=== PATIENT | male | born 1945 | race Caucasian/White ===

== ENCOUNTER 2017-02-15 14:36 | Inpatient (IN) | payer OTHER ==
--- NOTE | ~2017-02-15 | HP ---
History And Physical [address] [place]. [address] NAME: SUZE REID : [id number] STATUS : ADM Michelle PAT#: [id number] AGE: 71 ADM/REG DATE : 02/15/17 MR#: [id number] REPORT SERV DATE: 02/15/17 DICTATED BY: FOX MARTINEZ DATE: 02/15/17 REPORT STATUS : Draft TRANSCRIBED BY: MODAlbert DATE: 02/15/17 DATE OF ADMISSION: 02/15/2017 CHIEF COMPLAINT: Shortness of breath. HISTORY OF PRESENT ILLNESS: The patient is a 71 years old male with history of COPD, presented to [facility] ER with complaint of shortness of breath, dyspnea that had started yesterday. The patient reports had been coughing also had been feeling weak. The patient reports he has not had any fever. He had noted some pain on both sides. The patient denies complaint of pain with urination, but reports that his urine is dark. The patient reports he recently completed treatment of Keflex for his left leg infection. The patient reports this was prescribed by his primary care, Deloris Torres NP. ALLERGIES: THE PATIENT IS ALLERGIC TO IODINATED CONTRAST, ALSO AMOXICILLIN, BUT THE PATIENT DOES NOT KNOW THE RESPONSE TO AMOXICILLIN. CODE STATUS: The patient is a full code. MEDICATIONS: Home medications to include Lipitor 20 mg at bedtime, Plavix 75 mg daily, Claritin 10 mg daily, Cozaar 50 mg daily, metoprolol 25 mg twice a day, naproxen 550 mg p.o. p.r.n. for pain, potassium 20 mEq daily, Flomax 0.4 mg p.o. daily, Ultram 50 mg two tabs three times a day p.r.n. for pain. PAST MEDICAL HISTORY: Includes: 1. Positive for coronary artery disease, status post bypass. 2. COPD. 3. Gait impairment, uses walker. 4. Hypertension. 5. Hyperlipidemia. 6. Peripheral arterial disease. 7. History of left knee septic arthritis, status post left knee arthroscopic surgery. 8. Anemia. PAST SURGICAL HISTORY: 1. Left knee arthroscopic surgery on 06/29/2016. 2. Cardiac catheterization. 3. CABG. 4. Lower extremity stent. SOCIAL HISTORY: The patient lives at home with . His [employer] is [employer]. He is a former smoker, smoked since age 15, but quit four years ago. The patient reports he is a social drinker, normally just drinks wine. 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 FAMILY HISTORY: Hypertension and heart disease mainly on his mother's side. History And Physical [address] [address] NAME: SUZE REID : [id number] STATUS : ADM Michelle PAT#: [id number] AGE: 71 ADM/REG DATE : 02/15/17 MR#: [id number] REPORT SERV DATE: 02/15/17 DICTATED BY: FOX MARTINEZ DATE: 02/15/17 REPORT STATUS : Draft TRANSCRIBED BY: LAM DATE: 02/15/17 REVIEW OF SYSTEMS: The patient reports he has no problem with eating or swallowing. He reports he has been coughing the past few days, but has been having shortness of breath the past few days, but worsened yesterday. The patient reports he has history of COPD, but does not use oxygen at home and he does not use breathing treatment. The patient reports no chest pain. Reports no nausea or vomiting. Last bowel movement was yesterday. The patient reports that he usually walks with a walker, but had noted weakness since yesterday. The patient reports he recently completed treatment with Keflex for his left leg infection that he had noted an improvement even on his walking. The patient reports that he had experienced some pain of his left side, but he denies any complaint of pain with urination. LABORATORY DATA: WBC of 14.5, hemoglobin 10.5, hematocrit 32.8, platelet of 311. Sodium 134, potassium 3.4, chloride 95, CO2 of 27, BUN 25, creatinine of 1.10, glucose of 150, BNP of 332.9, magnesium 1.8. Troponin is 0.0. ABG; pH of 7.47, pCO2 of 38, PO2 of 60, base excess of 3.1, HCO3 of 27.2, and O2 saturation of 90. Pending urinalysis. Chest x-ray, right basilar atelectasis. PHYSICAL EXAMINATION: VITAL SIGNS: The patient with temp of 97.6, BP of 122/78, respiratory rate 22, heart rate was 75. GENERAL: The patient is an elderly male, in no acute distress noted. HEENT: Normocephalic, atraumatic. Bilaterally nonicteric. Sclera are clear. NECK: Supple with no pain. LUNGS: The patient with inspiratory wheezing and diminished breath sounds. Cough with deep breath and the patient breathless with prolonged talking. CV: Regular rate and rhythm. Normal S1, S2. No murmurs noted. ABDOMEN: Soft, nontender. No guarding. Bowel sounds x4 quadrants. EXTREMITIES: No edema in bilateral lower extremities. Noted generalized arthritic changes. Noted scar in the left knee consistent with surgical history. Bilateral upper extremity strength good. Bilateral lower extremity strength equally 4/5, but able to have good range of motion in all extremities. ASSESSMENT: 1. Shortness of breath likely secondary to chronic obstructive pulmonary disease exacerbation. 2. Chronic obstructive pulmonary disease with acute exacerbation. 3. Leukocytosis. 4. Right basilar atelectasis. 5. Hyponatremia. 6. Hyperkalemia. 7. Hypomagnesemia. 8. Hypertension. 9. Coronary disease, status post CABG. 10.Gait impairment. 11.Anemia secondary to chronic disease. 12.Hyperlipidemia. 13.Peripheral arterial disease status post stent. History And Physical [address] [address] NAME: SUZE REID : [id number] STATUS : ADM Michelle PAT#: [id number] AGE: 71 ADM/REG DATE : 02/15/17 MR#: [id number] REPORT SERV DATE: 02/15/17 DICTATED BY: FOX MARTINEZ DATE: 02/15/17 REPORT STATUS : Draft TRANSCRIBED BY: LAM DATE: 02/15/17 PLAN: 1. We will admit the patient on observation. Continue O2 support via nasal cannula, currently at 3 L with sat O2 at 94%. We will monitor sat O2 q.4 hours. Increase O2 if needed to keep the patient sat O2 at 92%. The patient received 125 mg IV Solu-Medrol. We will plan to follow up with 60 mg IV q.8 hours. Encouraged the patient to use incentive spirometry. We will follow up chest x-ray in a.m. to follow up atelectasis. 2. The patient at risk for further hypoxia. 3. Address code status with family member and the patient. The patient wishes full code. We will ensure POLST form completed. 4. We will resume home medication. 5. We will obtain repeat CBC, BMP, and magnesium level in a.m. 6. Place the patient on electrolyte protocol given admission sodium, potassium, and magnesium is low. The patient is at risk for cardiac arrhythmia. 7. We will have p.r.n. Zofran available for any nausea vomiting. Have Ativan IV p.r.n. for anxiety or agitation. Have morphine IV p.r.n. for complaint of pain. 8. We will follow up on urine culture. We will hold off antibiotic at this time given the patient just recently completed Keflex for 10 days. If the patient's urinalysis is positive, we will initiate Rocephin IV for now and follow up on lab study. 9. We will plan to refer the patient to PT once the patient's respiratory status is stable. The patient currently will be placed on a DVT prophylaxis with NATASHA hose. The patient is at risk for DVT. 10.We will monitor for signs and symptoms of coronary disease. We will continue home regimen with Plavix, beta-sara, and Cozaar. We will monitor blood pressures throughout patient admission. Blood pressure is stable despite not having medications this morning. The patient is at risk for acute coronary syndrome, CVA. 11.We will continue tramadol p.r.n. for pain at this time, but we will have morphine IV p.r.n. 12.We will place the patient on bronchodilator. He will need a breathing treatment q.4 hours. DICTATED BY: Lucía Cheney NP CLP/MODL Fox Martinez M.D. / [id number] CC: Elina Noel NP
--- NOTE | ~2017-02-15 | OP ---
Record Of Operation [facility] [address] [place]. [address] NAME: SUZE REID : [id number] STATUS : ADM Michelle PAT#: [id number] AGE: 71 ADM/REG DATE : 02/15/17 MR#: [id number] REPORT SERV DATE: 02/16/17 DICTATED BY: JONATHAN HALEY DATE: 02/16/17 REPORT STATUS : Draft TRANSCRIBED BY: MODL DATE: 02/16/17 DATE OF PROCEDURE: 02/16/2017 PROCEDURE: Right chest tube. DIAGNOSIS: Right moderate size pneumothorax. DESCRIPTION: Informed consent obtained from patient, both written and verbal. All questions answered. The patient was in CDU, bed 23, at the time of the procedure. He was on nasal cannula oxygen and vitals were being monitored. Dejuan Quinones PA-C, performed all washburn elements of the procedure. Chlorhexidine was scrubbed on the right anterior portion of the chest to clean off the area. A drape was placed and sterile technique was used to maintain throughout the entire procedure. 1% lidocaine was injected over the second intercostal space down to the level of the parietal pleura to reduce pain. A small scalpel estefani was done to open up an area on the skin for the introducer needle to be placed. Then, the main pneumothorax needle was inserted in the right anterior chest second intercostal space until the right pleural space was accessed. The catheter was then inserted and the needle was removed. The catheter was hooked up to a flutter valve and was sutured and dressing in place. Chest x-ray is pending. No complications or bleeding loss. CEP/MODL Jonathan Haley DO / [id number] CC: Lenin Holt M.D.
--- NOTE | ~2017-02-15 | CN ---
Consultation Report [facility] [address] [place]. [address] NAME: SUZE REID : [id number] STATUS : ADM Michelle PAT#: [id number] AGE: 71 ADM/REG DATE : 02/15/17 MR#: [id number] REPORT SERV DATE: 02/16/17 DICTATED BY: JONATHAN HALEY DATE: 02/16/17 REPORT STATUS : Draft TRANSCRIBED BY: MODL DATE: 02/16/17 CONSULTATION DATE OF CONSULTATION: HISTORY OF PRESENT ILLNESS: This is a 71-year-old white male with past medical history of COPD/emphysema, admitted to the hospital for shortness of breath over the past couple of days. We were consulted because of a newly discovered right-sided pneumothorax seen on chest x-ray right out this morning. The patient is normally not on any home oxygen, but he is currently on 5 L/minute here saturating 92%. The patient when he came into the hospital, he was having some slight cough with clear phlegm, but nothing out of the ordinary for him, not having any fevers, chills. Did have a little bit of chest pain last night, but not hurting him currently. He was able to speak in full sentences without any accessory muscle use. The patient does have COPD, but not followed by barrel polisher inside and he is not on any current inhalers or oxygen at home. Last hospitalization was back in our facility was back in July, after he had sepsis of his left knee, which was related to MRSA. REVIEW OF SYSTEMS: Not having fevers, chills, or sweats. No nausea, vomiting, abdominal pain, syncope or seizure. No significant leg swelling or rash. ALLERGIES: IODINE, AMOXICILLIN. HOME MEDICATIONS: Reviewed. PAST MEDICAL HISTORY: Coronary artery disease, CABG, COPD, hypertension, dyslipidemia, peripheral vascular disease, history of left knee septic arthritis, cardiac catheterization, lower extremity stent. SOCIAL HISTORY: Former smoker. 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 FAMILY HISTORY: Hypertension and heart disease. PHYSICAL EXAMINATION: VITAL SIGNS: Per nursing flow sheet. GENERAL: No acute distress. ENT: Normocephalic, atraumatic. NECK: Trachea midline. No palpable lymph nodes or masses. HEART: Regular rate and rhythm. No murmurs. LUNGS: Diminished bilaterally, but no wheezes. No accessory muscle use. GI: Soft, nontender, nondistended. EXTREMITIES: No edema, cyanosis, or clubbing. Consultation Report [address] [place]. [address] NAME: SUZE REID : [id number] STATUS : ADM Michelle PAT#: [id number] AGE: 71 ADM/REG DATE : 02/15/17 MR#: [id number] REPORT SERV DATE: 02/16/17 DICTATED BY: JONATHAN HALEY DATE: 02/16/17 REPORT STATUS : Draft TRANSCRIBED BY: MODL DATE: 02/16/17 LABORATORY DATA: Labs and radiology studies reviewed. ASSESSMENT AND PLAN: 1. Right moderate-sized pneumothorax. 2. Chronic obstructive pulmonary disease. 3. Right basilar atelectasis. The patient is on oxygen to keep sats above 92%. The patient will need a right-sided chest tube. Procedure was explained to the patient with risks and side effects discussed. All questions were answered. Procedure to be done inside the room and will be dictated under separate report. The patient is currently on IV steroids, but likely will be able to stop those soon. He is also on DuoNeb aerosols. CEP/MODL Jonathan Haely DO / [id number] CC: Lenin Holt M.D.
--- NOTE | ~2017-02-15 | CN ---
Consultation Report [facility] [address] [place]. [address] NAME: NIRAJ REID : [id number] STATUS : DIS IN PAT#: [id number] AGE: 71 ADM/REG DATE : 02/15/17 MR#: [id number] REPORT SERV DATE: 02/18/17 DICTATED BY: DUKE CAMARGO DATE: 02/18/17 REPORT STATUS : Draft TRANSCRIBED BY: MODL DATE: 02/18/17 CARDIOVASCULAR CONSULTATION DATE OF CONSULTATION: 02/18/2017 HISTORY OF PRESENT ILLNESS: Mr. Niraj Reid is a 71-year-old gentleman with past medical history significant for coronary artery disease. He is status post bypass by Dr. Rosario in 2006. His most recent cardiac catheterization was in 2015, which revealed chronically occluded SVG to the right coronary artery. The patient has been treated medically since that time. He was admitted here on 02/15/2017 secondary to a spontaneous right pneumothorax. I was asked to see the patient earlier today, as he has now developed atrial fibrillation with rapid ventricular response. REVIEW OF SYSTEMS: The patient denies any complaints. He denies any chest pain, shortness of breath, or tachypalpitations. He denies any gastrointestinal, genitourinary, or neurologic complaints. PAST MEDICAL HISTORY: As noted above, significant for coronary artery disease status post remote CABG. The patient also with history of peripheral vascular disease. He has had an endovascular repair of an abdominal aortic aneurysm in 2009. He is status post left carotid endarterectomy in 2011. He has also had iliac stenting. The patient also with a history of hypertension and hyperlipidemia. SOCIAL HISTORY: The patient quit smoking 3 years ago. FAMILY HISTORY: Positive for coronary artery disease. PHYSICAL EXAMINATION: VITAL SIGNS: Blood pressure 110/70, pulse 106 to 130, respiratory rate 18. The patient is afebrile. GENERAL: This is a well-developed, well-nourished 71-year-old gentleman, alert and oriented x3, in no acute distress. NECK: No jugular venous distention or hepatojugular reflux. Left carotid bruits appreciated. CARDIOVASCULAR: Increased rate with irregular rhythm. LUNGS: Clear to auscultation, however excursion is fair to poor. EXTREMITIES: Reveals no clubbing, cyanosis, or edema. DIAGNOSTIC DATA: EKG shows atrial fibrillation with rapid ventricular response at a rate of 123 beats per minute. There are minimal nonspecific ST-T wave abnormalities. There is no evidence of acute injury. ASSESSMENT: 1. Atrial fibrillation with rapid ventricular response, likely exacerbated by recent Consultation Report [id number] [place]. [address] NAME: NIRAJ REID : [id number] STATUS : DIS IN PAT#: [id number] AGE: 71 ADM/REG DATE : 02/15/17 MR#: [id number] REPORT SERV DATE: 02/18/17 DICTATED BY: DUKE CAMARGO DATE: 02/18/17 REPORT STATUS : Draft TRANSCRIBED BY: LAM DATE: 02/18/17 pneumothorax. 2. Coronary artery disease. 3. Peripheral vascular disease. 4. Hypertension. 5. Hyperlipidemia. 6. Chronic obstructive pulmonary disease. PLAN: 1. We will change metoprolol to sotalol. 2. We will discontinue Plavix and start Eliquis. 3. We will give some IV digoxin to slow his rate. I appreciate your consultation on this complex patient. I will follow him closely with you. /LAM Duke Camargo M.D., [facility] / [id number] CC: Lenin Holt M.D.
--- NOTE | ~2017-02-15 | DS ---
Discharge Summary [facility] [address] [place]. [address] NAME: SUZE REID : [id number] STATUS : DIS IN PAT#: [id number] AGE: 71 ADM/REG DATE : 02/15/17 MR#: [id number] REPORT SERV DATE: 02/25/17 DICTATED BY: FOX MARTINEZ DATE: 02/24/17 REPORT STATUS : Draft TRANSCRIBED BY: LAM DATE: 02/24/17 Data Collection from hospitalization DISCHARGE DIAGNOSES: 1. New-onset atrial fibrillation with rapid ventricular response. 2. Chronic obstructive pulmonary disease exacerbation with pneumothorax. 3. Electrolyte imbalance. 4. Gait impairment. 5. Coronary artery disease, status post coronary artery bypass grafting. 6. History of old cerebrovascular accident. 7. Hypertension. 8. Gait impairment. 9. Hyperlipidemia. 10.Peripheral arterial disease. 11.Anemia. 12.Former smoker. CONSULTATIONS: 1. Duke Moncada M.D., FACC. 2. Jonathan Haley DO. PROCEDURES PERFORMED: Right chest tube placement on 02/16/2017. DISPOSITION: The patient checked out against medical advice. HOSPITAL COURSE: This is a 71-year-old man who has a history of COPD, who presented to the [facility] Emergency Room with complaints of shortness of breath and dyspnea that started on the day prior to admission. The patient reports that he had been coughing and he felt weak. He said he has not had any fever. He had noticed some pain on both sides. He denied any complaints of pain with urination, but did report that his urine was dark. He said he recently completed treatment of Keflex for his left leg infection. He was admitted to the hospital at this time for further evaluation and treatment. Upon admission, O2 support via nasal cannula was continued. He received IV Solu-Medrol. We encouraged him to use incentive spirometry. The patient wanted to be a full code. Home medications would be resumed. The patient was placed on electrolyte protocol. Zofran would be given as needed for nausea and vomiting. IV Ativan would be given as needed for anxiety or agitation. IV morphine would be given as needed for complaints of pain. DVT prophylaxis with NATASHA hoses would be placed. Home regimen of Plavix, beta-sara, and Cozaar were continued. Tramadol was continued for pain as needed. The patient was placed on bronchodilator. The following day, he was seen by Dr. Jonathan Haley regarding newly discovered right-sided pneumothorax seen on chest x-ray. He is not normally on home oxygen, but was currently on 5 liters/minute. He was saturating at 92%. He was able to speak in full sentences without any accessory muscle use. The patient has a moderate-sized right pneumothorax and right basilar atelectasis. We would keep the patient on oxygen to keep saturations above 92%. It was felt that he would need a right-sided chest tube. This procedure was discussed with the patient. The patient was currently on IV steroids, but these would likely be able to be discontinued soon. He was also on DuoNeb aerosols. The Discharge Summary [address] [address] NAME: SUZE REID : [id number] STATUS : DIS IN PAT#: [id number] AGE: 71 ADM/REG DATE : 02/15/17 MR#: [id number] REPORT SERV DATE: 02/25/17 DICTATED BY: FOX MARTINEZ DATE: 02/24/17 REPORT STATUS : Draft TRANSCRIBED BY: LAM DATE: 02/24/17 patient underwent right-sided chest tube placement by Dr. Jonathan Haley. Shortness of breath and dyspnea improved with chest tube placement. On 02/17/2017, he had no new complaints. Chest x-ray showed no visible pneumothorax. There was a small amount of right pleuritic fluid. The chest tube was going to be clamped. Later that day, the chest tube was removed. He said he was feeling a little better. On 02/18/2017, the patient developed a new onset of atrial fibrillation. He was seen by Dr. Duke Moncada. He does have a history of coronary artery disease. His most recent cardiac catheterization was in 2016, which revealed chronically occluded saphenous vein graft to the right coronary artery. He had been treated medically since that time. EKG revealed atrial fibrillation with rapid ventricular response at a rate of 123 beats per minute. There were minimal nonspecific ST-T wave abnormalities. There was no evidence of acute injury. Metoprolol was changed to sotalol. Plavix was discontinued and he was started on Eliquis. He was given some IV digoxin to slow his rate. He had no pain or dizziness. He has no known prior history of atrial fibrillation. The patient elected to leave the hospital against medical advice. Information collected by: Aura Ricardo I submit the above information as my discharge summary. JULIO/LAM Fox Martinez M.D. / [id number] CC: Elina Noel M.D., [facility]
[2017-02-15 11:40] LABS: BASOPHILS 0.1 %; BASOPHILS ABSOLUTE 0.02 10/3/uL (0.0-0.16); EOSINOPHILS 0.6 %; EOSINOPHILS ABSOLUTE 0.09 10/3/uL (0.0-0.53); HEMATOCRIT 32.8 % (40.0-51.0); HEMOGLOBIN 10.5 g/dL (13.6-17.8); IMMATURE GRANULOCYTES 0.2 %; IMMATURE GRANULOCYTES ABSOLUTE 0.03 10/3/uL (0.0-0.11); LYMPHOCYTES 7.4 %; LYMPHOCYTES ABSOLUTE 1.07 10/3/uL (0.67-4.30); MEAN CORPUSCULAR HEMOGLOB 26.6 pg (26.0-34.0); MEAN PLATELET VOLUME 8.5 fL (9.2-13.0); MONOCYTES 4.8 %; NEUTROPHILS 86.9 %; NEUTROPHILS ABSOLUTE 12.61 10/3/uL (2.02-8.40); RBC DISTRIBUTION WIDTH 15.5 % (12.0-16.0); RED CELL COUNT 3.94 10/6/uL (4.7-6.1)
[2017-02-15 11:41] LABS: ER CBC TAT 0 Hrs 05 Mins; MANUAL DIFF NO %; MEAN CORPUSCULAR VOLUME 83.2 fL (80-100); PLATELET COUNT 311 10/3/uL (150-400); WHITE BLOOD CELLS 14.5 10/3/uL (4.5-10.5)
[2017-02-15 11:48] LABS: INTERNATIONAL NORMAL RATI 1.2 UNITS (-); PARTIAL THROMBO TIME 26.9 SEC (22.5-37.2); PROTIME (NOT ORD) 15.2 SEC (12.0-14.5)
[2017-02-15 11:59] LABS: BUN (BLOOD UREA NITROGEN) 25 MG/DL (6-23); CALCIUM, SERUM 8.9 MG/DL (8.5-10.4); CHEST PAIN PROFILE TAT 0 Hrs 23 Mins; CHLORIDE, SERUM 95 MMOL/L (96-112); CO2 (CARBON DIOXIDE) 27 MMOL/L (24-34); GFR AFRICAN AMERICAN 77 ML/MIN (>=60); GFR NON AFRICAN AMERICAN 67 ML/MIN (>=60); GLUCOSE, SERUM 150 MG/DL (60-99); POTASSIUM, SERUM 3.4 MMOL/L (3.5-5.3); SODIUM, SERUM 134 MMOL/L (135-148); TROPONIN I 0.04 NG/ML (<0.05)
[~2017-02-15 14:36] MED LIST: *UNABLE1; ALEVE220 MG PO; ASAB PO; ASAEC PO; CINNAMONPO PO; CIP5 PO; COZ50 PO; DSS PO; DULERA 100 MCG/13 GM INH; ENDOCET1 TA2 PO; FLOMAX4 PO; HCTZ PO; HYDROCHLOROT25 MG PO; IMDUR30 PO; KDUR20 PO; KLOR-CON M2020 MEQ PO; LIDOCAINE TOP; LIPITOR20 PO; LOP25 PO; MAXIMUM D3 PO; MEDROLPAK4 PO; NAP500 PO; PEP20 PO; PERCOCET1 TA2 PO; PLAVIX PO; POTASSIUM RX PO; PRIN10 PO; ZYVOXPO PO; [UNRECOGNIZED DRUG - REMARK] PO
[2017-02-15 14:38] LABS: ALLENS TEST Pos; BE (BASE EXCESS) 3.4 MEQ/L (0 +/- 2.5); CARBOXYHEMOGLOBIN 1.5 % (0-3); HCO3 (ACTUAL BICARBONATE) 27.2 MEQ/L (23-27); HEMOBLOGIN CONTENT 11.3 G/DL (14-18); INSTRUMENT SERIAL # 8087; METHEMOGLOBIN 0.2 % (0-3); O2 CONTENT 14.1 VOL% (18-24); OPERATOR ID 32214; PCO2 (CO2 TENSION) 38 MMHG (35-45); PO2 (O2 TENSION) 60 MMHG (79-93); SAMPLE Arterial; pH 7.47 (7.37-7.43)
[2017-02-15] MEDS ORDERED: KDUR20 PO (15:33)
[2017-02-15] MEDS ORDERED: FLOMAX4 PO (15:33)
[2017-02-15] MEDS ORDERED: LOP25 PO (15:34)
[2017-02-15] MEDS ORDERED: HYDROCHLOROT25 MG PO (15:34)
[2017-02-15] MEDS ORDERED: COZ50 PO (15:36)
[2017-02-15] MEDS ORDERED: CLARIT10 PO (15:36)
[2017-02-15] MEDS ORDERED: ULTRAM50 PO (15:36)
[2017-02-15] MEDS ORDERED: ANADS PO (15:37)
[2017-02-15] MEDS ORDERED: K500 PO (15:45)
[2017-02-16 03:24] LABS: ASCORBIC ACID (UR NOT ORDER) NEG (NEG); BILIRUBIN, URINE NEGATIVE (NEG); KETONE, URINE NEGATIVE (NEG); LEUKOCYTE ESTERASE(NOT OR NEG (NEG); WBC (NOT ORDERED) (RFLEX) 4 (0-5)
[2017-02-16 05:27] LABS: BASOPHILS 0 %; EOSINOPHILS 0.1 %; EOSINOPHILS ABSOLUTE 0.01 10/3/uL (0.0-0.53); HEMATOCRIT 34.4 % (40.0-51.0); HEMOGLOBIN 10.8 g/dL (13.6-17.8); LYMPHOCYTES 9.7 %; LYMPHOCYTES ABSOLUTE 0.82 10/3/uL (0.67-4.30); MEAN CORPUS HGB CONC 31.4 g/dL (32.0-36.0); MEAN CORPUSCULAR HEMOGLOB 26.4 pg (26.0-34.0); MEAN CORPUSCULAR VOLUME 84.1 fL (80-100); MEAN PLATELET VOLUME 8.6 fL (9.2-13.0); MONOCYTES 1.9 %; MONOCYTES ABSOLUTE 0.16 10/3/uL (0.21-1.20); NEUTROPHILS 88.3 %; NEUTROPHILS ABSOLUTE 7.46 10/3/uL (2.02-8.40); PLATELET COUNT 302 10/3/uL (150-400); RBC DISTRIBUTION WIDTH 15.6 % (12.0-16.0); RED CELL COUNT 4.09 10/6/uL (4.7-6.1)
[2017-02-16 05:36] LABS: MANUAL DIFF NO %; WHITE BLOOD CELLS 8.5 10/3/uL (4.5-10.5)
[2017-02-16 05:45] LABS: CALCIUM, SERUM 9.4 MG/DL (8.5-10.4); CHLORIDE, SERUM 99 MMOL/L (96-112); CO2 (CARBON DIOXIDE) 28 MMOL/L (24-34); CREATININE 1.05 MG/DL (0.70-1.30); GFR AFRICAN AMERICAN 82 ML/MIN (>=60); GFR NON AFRICAN AMERICAN 71 ML/MIN (>=60); GLUCOSE, SERUM 137 MG/DL (60-99); POTASSIUM, SERUM 3.7 MMOL/L (3.5-5.3); SODIUM, SERUM 137 MMOL/L (135-148)
[2017-02-16 05:47] LABS: BUN (BLOOD UREA NITROGEN) 32 MG/DL (6-23)
[2017-02-18 05:29] LABS: BASOPHILS 0.4 %; BASOPHILS ABSOLUTE 0.04 10/3/uL (0.0-0.16); EOSINOPHILS 0.5 %; EOSINOPHILS ABSOLUTE 0.05 10/3/uL (0.0-0.53); HEMATOCRIT 30.9 % (40.0-51.0); HEMOGLOBIN 9.5 g/dL (13.6-17.8); IMMATURE GRANULOCYTES 0.2 %; IMMATURE GRANULOCYTES ABSOLUTE 0.02 10/3/uL (0.0-0.11); LYMPHOCYTES 9.2 %; LYMPHOCYTES ABSOLUTE 1.02 10/3/uL (0.67-4.30); MANUAL DIFF NO %; MEAN CORPUS HGB CONC 30.7 g/dL (32.0-36.0); MEAN CORPUSCULAR HEMOGLOB 26.2 pg (26.0-34.0); MEAN CORPUSCULAR VOLUME 85.4 fL (80-100); MEAN PLATELET VOLUME 8.6 fL (9.2-13.0); MONOCYTES 6.5 %; MONOCYTES ABSOLUTE 0.72 10/3/uL (0.21-1.20); NEUTROPHILS 83.2 %; NEUTROPHILS ABSOLUTE 9.25 10/3/uL (2.02-8.40); PLATELET COUNT 241 10/3/uL (150-400); RBC DISTRIBUTION WIDTH 15.6 % (12.0-16.0); RED CELL COUNT 3.62 10/6/uL (4.7-6.1); WHITE BLOOD CELLS 11.1 10/3/uL (4.5-10.5)
[2017-02-18 05:42] LABS: CHLORIDE, SERUM 100 MMOL/L (96-112); CO2 (CARBON DIOXIDE) 31 MMOL/L (24-34); GFR AFRICAN AMERICAN 87 ML/MIN (>=60); GFR NON AFRICAN AMERICAN 75 ML/MIN (>=60); POTASSIUM, SERUM 3.6 MMOL/L (3.5-5.3); SODIUM, SERUM 139 MMOL/L (135-148)
[2017-02-18 05:43] LABS: BUN (BLOOD UREA NITROGEN) 40 MG/DL (6-23); GLUCOSE, SERUM 102 MG/DL (60-99)
== END 2017-02-18 12:58 | disposition left against medical advice (07) | DRG 200 ==
LOC: ER 14:36 → CDU1 15:32 → CDU2 18:14
PROVIDERS: Emergency Medicine; Family Medicine
PROC: 0W9930Z Drainage of Right Pleural Cavity with Drainage Device, Percutaneous Approach (ICD-10-PCS; principal; 2017-02-16)
DX: J93.83 Other pneumothorax (principal); J44.1 Chronic obstructive pulmonary disease with (acute) exacerbation; E87.1 Hypo-osmolality and hyponatremia; E87.5 Hyperkalemia; E83.42 Hypomagnesemia; I25.810 Atherosclerosis of coronary artery bypass graft(s) without angina pectoris; I48.91 Unspecified atrial fibrillation; J98.11 Atelectasis; I10 Essential (primary) hypertension; R26.89 Other abnormalities of gait and mobility; D63.8 Anemia in other chronic diseases classified elsewhere; E78.5 Hyperlipidemia, unspecified; Z95.820 Peripheral vascular angioplasty status with implants and grafts; Z87.891 Personal history of nicotine dependence; Z79.02 Long term (current) use of antithrombotics/antiplatelets; Z79.891 Long term (current) use of opiate analgesic; Z86.14 Personal history of Methicillin resistant Staphylococcus aureus infection; I69.398 Other sequelae of cerebral infarction
CPT/HCPCS: 36600; 71010; 71020; 80048; 81001; 82805; 83735; 83880; 84484; 85025; 85610; 85730; 93005; 94640; 96374; 99285; A9270-GY; J2930

== ENCOUNTER 2017-02-24 16:58 | Inpatient (IN) | payer OTHER ==
--- NOTE | ~2017-02-24 | HP ---
History And Physical [place] [id number] [facility] [place]. [address] NAME: SUZE REID : [id number] STATUS : ADM IN [facility]#: [id number] AGE: 71 ADM/REG DATE : 02/24/17 MR#: [id number] REPORT SERV DATE: 02/25/17 DICTATED BY: FOX MARTINEZ DATE: 02/25/17 REPORT STATUS : Draft TRANSCRIBED BY: MODL DATE: 02/25/17 DATE OF ADMISSION: 02/24/2017 CHIEF COMPLAINT: Shortness of breath and cough. HISTORY OF PRESENT ILLNESS: The patient is a 71-year-old male, known to our service, who was recently admitted to [facility] on 02/15/2017, where he was treated for right pneumothorax, underwent chest tube, and his chest tube was removed Monday. The next day which was Monday of last week, the patient had gone home AMA. The patient's family member reports that the patient's breathing has progressively worsened. The patient reports that he had noted increase in shortness of breath and difficulty taking good deep breaths as well as cough and pain when coughing and breathing; reports that this had worsened progressively over the last 5 days since he left the [facility] on last Monday. The patient presented to [facility] ER yesterday for worsening complaint of shortness of breath, cough, and pain with breathing as well as the patient reports he was also very weak. The patient now reports he has been breathing much better since his chest tube was placed yesterday. He reports he is able to breathe deeper, still coughs when he takes deep breaths. He reports he had noticed some blood in his phlegm prior to returning back to the hospital but he reports this has not been an issue now. The patient reports his right chest discomfort is also much improved since the chest tube has been placed but still ongoing. He scales his pain in a range of 0 to 10 to be 1 to 4. ALLERGIES: THE PATIENT WITH ALLERGY TO IODINE CONTRAST AND AMOXICILLIN. THE PATIENT DOES NOT KNOW THE RESPONSE TO AMOXICILLIN. CODE STATUS: Full code. MEDICATIONS: Home medications to include 1. Lipitor 20 mg at bedtime. 2. Plavix 75 mg daily. 3. Hydrochlorothiazide 25 mg daily. 4. Claritin 10 mg daily. 5. Losartan 50 mg daily. 6. Lopressor 25 mg twice a day. 7. Potassium sustained release tablet 20 mEq daily. 8. Flomax 0.4 mg at bedtime. PAST MEDICAL HISTORY: Includes COPD, coronary artery disease status post CABG, hypertension, hyperlipidemia, peripheral arterial disease, chronic anemia, history of left knee MRSA septic arthritis, status post left knee arthroscopy, history of lower extremity stent placement, gait impairment, uses a walker, and left knee pain secondary to history of left knee arthroscopy. PAST SURGICAL HISTORY: History And Physical [address] [address] NAME: SUZE REID : [id number] STATUS : ADM IN PAT#: [id number] AGE: 71 ADM/REG DATE : 02/24/17 MR#: [id number] REPORT SERV DATE: 02/25/17 DICTATED BY: FOX MARTINEZ DATE: 02/25/17 REPORT STATUS : Draft TRANSCRIBED BY: LAM DATE: 02/25/17 1. Left knee arthroscopic surgery on 06/29/2016. 2. Cardiac catheterization. 3. Coronary artery bypass grafting. 4. Lower extremity stent. SOCIAL HISTORY: The patient is . His hoahaoism is Yazdanism. 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 He is a remote smoker, quit 4 years ago. He does drink socially, he drinks wine and he denies illicit drug use. FAMILY HISTORY: To include coronary artery disease, hypertension in the mother's side. REVIEW OF SYSTEMS: The patient denies any problem with his eyesight; however, he denies any problems swallowing. He has a history of hypertension. He reports right chest discomfort with cough but this had been better since chest tube has been placed. The patient reports shortness of breath had increased progressively after he left [facility] on Monday. The patient reports he left AMA secondary to his . The patient denies history of home O2 use. The patient denies history of ulcer or reflux. Denies any nausea or vomiting at this time. The patient denies any complaint of pain with urination. He reports he is having good urine output. The patient with history of left knee arthritis. Reports left knee pain since his surgery. He reports he uses a walker. He reports he walks unsteadily at times. The patient denies any swelling. The patient with no history of stroke but reports weakness since the last few days with declining medical condition. The patient denies history of anxiety and depression. The patient reports he has had history of high blood sugar but had used cinnamon tablet for 3 months and reports that his blood sugar has been better then. He reports he has not been taking cinnamon tablet for approximately a year. He reports he only had some small blood noted in his phlegm when he coughs prior to coming back to the hospital yesterday. No blood and sputum today. PHYSICAL EXAMINATION: VITAL SIGNS: Blood pressure of 112/54, pulse of 65, respiratory rate 25, temperature 97.7, and sat O2 99% at 6 L/minute. The patient was at 10 L/minute, early this morning. History And Physical [address] [address] NAME: SUZE REID : [id number] STATUS : ADM IN [facility]#: [id number] AGE: 71 ADM/REG DATE : 02/24/17 MR#: [id number] REPORT SERV DATE: 02/25/17 DICTATED BY: FOX MARTINEZ DATE: 02/25/17 REPORT STATUS : Draft TRANSCRIBED BY: LAM DATE: 02/25/17 LABORATORY STUDY: On 02/24/2017, sodium 135, potassium 4.4, chloride 96, CO2 of 27, BUN 31, creatinine 1.59, glucose of 173, GFR of 43, and magnesium of 2.0. WBC of 28.5, hemoglobin 11.3, hematocrit of 35.7, and platelets of 283. A.m. labs on 02/25/2017, sodium 140, potassium 3.8, chloride 104, CO2 of 28, creatinine 1.17, glucose 91, GFR of 62, magnesium of 2.1, and phosphorus of 4.1. WBC 13.7, hemoglobin 9.2, hematocrit 29.7, and platelet of 222. MRSA screen positive, SA positive, blood culture pending. Troponin on 02/24/2017, was 0.05. Lactate of 1.6. ABG on 02/24/2017, pH of 7.47, pCO2 of 37, PO2 of 72, HCO2 of 26, and FiO2 of 60. IMAGING: X-ray on 02/24/2017, at 18:24, post placement of chest tube revealed right chest tube in place with new large apical pneumothorax, increased consolidation in the right lung base. On 02/25/2017, at 0902 hours, chest x-ray showed small caliber chest tube in stable position in the right, decreased size of right apical pneumothorax, measured decreased to 24 mm from 39 mm, continued dense consolidation within the mid to lower right lung, some right pleural fluid present. PHYSICAL EXAMINATION: GENERAL: The patient is a pleasant elderly male, in no acute distress at this time. HEENT: Normocephalic, atraumatic. Nonicteric. Poor dentition. Tongue clear. Midline. No facial drooping. NECK: Supple. BREASTS: Noted right chest tube secure and intact dressing connected to low intermittent wall suction. CHEST: Expansion symmetrical. LUNGS: Noted some upper rhonchi, cleared with cough with diminished right lower lobe breath sounds and shallow breathing noted but equal. ABDOMEN: Flat, nontender. Bowel sounds x4 quadrants. No guarding. : Not assessed. RECTAL: Not assessed. EXTREMITIES: Noted to move extremities freely with minimal pain. The patient with good range of motion. Right upper hand peripheral IV intact without redness. 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 SKIN: No obvious deformity. Noted right chest wall with chest tube. Noted old scar consistent with history in the left knee. NEUROLOGIC: The patient is alert and oriented x4. Patient with good attitude. ASSESSMENT: 1. Shortness of breath/cough likely secondary to pneumonia and tension pneumothorax. 2. Hypoxia likely secondary to pneumothorax and pneumonia. 3. Right tension pneumothorax. 4. Leukocytosis likely secondary to pneumonia. 5. Atrial fibrillation with RVR now resolved. 6. COPD without acute exacerbation. 7. Coronary artery disease, status post chest tube with improvement of pleuritic cough, likely secondary to issue with his lung. 8. Anemia secondary to chronic disease. 9. Hypertension, controlled. History And Physical [address] [address] NAME: SUZE REID : [id number] STATUS : ADM IN [facility]#: [id number] AGE: 71 ADM/REG DATE : 02/24/17 MR#: [id number] REPORT SERV DATE: 02/25/17 DICTATED BY: FOX MARTINEZ DATE: 02/25/17 REPORT STATUS : Draft TRANSCRIBED BY: LAM DATE: 02/25/17 10.Hyperlipidemia. 11.Peripheral arterial disease. 12.Gait impairment. PLAN: 1. Appreciate Critical Care assistance with management of the patient's current medical condition and chest tube monitoring. The patient remained on chest tube under Critical Care. Continue low intermittent wall suction. We will continue monitoring imaging study. The patient is pending repeat chest x-ray in a.m. The patient is tolerating, wean O2, the patient was 10 liter this morning, now at 6 L. Continue breathing treatment for critical care. Continue to monitor sat O2 and respiratory rate. The patient is at risk for further hypoxia. 2. Patient with admission WBC of 28.5, down to 13.7 this morning. The patient is afebrile, leukocytosis likely secondary to pneumonia. The patient currently being empirically treated with vancomycin and cefepime. Pharmacy follows. Vancomycin trough. We will continue to monitor lab study. The patient is at risk for sepsis. 3. The patient was admitted with atrial fibrillation with RVR. Did respond well to Cardizem, likely respiratory in origin. The patient now off Cardizem and remained on Lopressor. Heart rate is more stable. The patient remained sinus most of the time with sinus arrhythmia at times in PVC. 4. The patient with history of coronary artery disease, status post CABG with pleuritic chest pain likely secondary to his lung issue with pneumothorax. His admission troponin is 0.05. We will continue to monitor any signs symptoms of acute coronary syndrome. Continue home med regimen of Plavix, SUSIE inhibitor, statin, and a beta sara. The patient is at risk for recurrent acute coronary syndrome. 5. The patient with history of anemia secondary to chronic disease. Admission H and H were 11.2 and 35.7; this morning, down to 9.2 and 29.7. We will monitor and if needed, give blood transfusion if hemoglobin continued to decline, likely decline in hemoglobin secondary to chest tube placement. 6. Patient with history of gait impairment, now at bedrest but once medical condition is stable, we will refer the patient to PT for evaluation and treatment. The patient is at risk for fall. We will ensure the patient has sequential device for DVT prophylaxis. 7. Patient with history of medical noncompliance and did state that he had a good reason for leaving AMA. Discussed with the patient the importance of compliance with medical recommendations. Family members at the bedside. Discussed with them and questions answered and all agreed with the patient's compliant now with hospital treatment. The patient is at risk for worsening medical condition if continues to be noncompliant. 8. Code status addressed with the patient and family member. All desired to continue full code. We will ensure POLST form in chart. 9. We will follow up on blood culture. The patient'S blood culture pending at this time. 10.The patient with admission BUN of 1.59 has been improved this morning, down to 1.17 after fluid. We will continue the monitor renal function. The patient is at risk for MIGUEL. DICTATED BY: Lucía Cheney NP History And Physical [address] [address] NAME: SUZE REID : [id number] STATUS : ADM IN [facility]#: [id number] AGE: 71 ADM/REG DATE : 02/24/17 MR#: [id number] REPORT SERV DATE: 02/25/17 DICTATED BY: FOX MARTINEZ DATE: 02/25/17 REPORT STATUS : Draft TRANSCRIBED BY: LAM DATE: 02/25/17 CLP/MODL Fox Martinez M.D. / [id number] CC: Elina Lopes M.D.
--- NOTE | ~2017-02-24 | CN ---
Consultation Report [facility] [address] [place]. [address] NAME: SUZE REID : [id number] STATUS : ADM IN [facility]#: [id number] AGE: 71 ADM/REG DATE : 02/24/17 MR#: [id number] REPORT SERV DATE: 02/28/17 DICTATED BY: THIEN DEL CID JR. DATE: 02/28/17 REPORT STATUS : Draft TRANSCRIBED BY: MODL DATE: 02/28/17 CONSULTATION DATE OF CONSULTATION: 02/28/2017 REQUESTING PHYSICIAN: Dr. Oneill, Pulmonary Critical Care. REASON FOR CONSULTATION: Right empyema. BRIEF HISTORY: This is a 71-year-old white male who was recently admitted on 02/15/2017 to [facility] with a pneumothorax and had a small-bore chest tube placed. It was eventually removed this past Monday, and on Monday, the patient went home AMA. He had continued difficulty breathing with progressive dyspnea as well as a cough and pain and re- presented to the emergency room on 02/24/2017. Upon further evaluation, he was noted to have a recurrent upper lobe pneumothorax and a new tube was placed. He was also noted to have an elevation in his white count and procalcitonin level. He was taken for a CT scan of the chest yesterday and on that scan was noted to have fluid in the right chest with poor aeration of the right lung consistent with an empyema. There was obstruction at the bronchus intermedius in the posterior basilar pleural space. On CT last year, he was noted to have enlargement in this area. We were asked to see him for possible decortication and biopsy of the right peritracheal lymph node. PAST MEDICAL HISTORY: Significant for coronary artery disease with previous coronary artery bypass surgery emergently in [address] Cliff Rosario with a saphenous vein graft to the right coronary artery. History of tobacco abuse; benign prostatic hypertrophy; hypertension; hyperlipidemia; peripheral arterial disease; chronic anemia; history of left knee MRSA septic arthritis, status post left knee arthroscopy; history of stent to the lower extremity; gait impairment, requiring use of a walker; and atrial fibrillation. PAST SURGICAL HISTORY: Includes left knee arthroscopic surgery, 06/29/2016; previous cardiac catheterization; left lower extremity stenting; and coronary artery bypass grafting x1 with saphenous vein graft to the right coronary artery in 2006. SOCIAL HISTORY: The patient is . 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 He drinks wine socially with less than two drinks a month. He smoked one pack per day for 40 years, but quit back in 2013. ALLERGIES: IODINE CONTRAST AND AMOXICILLIN. HOME MEDICATIONS: Include Lipitor 20 mg p.o. daily, Plavix 75 mg p.o. daily, hydrochlorothiazide 25 mg p.o. daily, Claritin 10 mg p.o. daily, losartan 50 mg daily, Lopressor 25 mg twice daily, potassium 20 mEq p.o. daily, Flomax 4 mg p.o. daily at bedtime. FAMILY HISTORY: Includes coronary artery disease and hypertension, neither of which is Consultation Report [address] [address] NAME: SUZE REID : [id number] STATUS : ADM IN [facility]#: [id number] AGE: 71 ADM/REG DATE : 02/24/17 MR#: [id number] REPORT SERV DATE: 02/28/17 DICTATED BY: THIEN DEL CID JR. DATE: 02/28/17 REPORT STATUS : Draft TRANSCRIBED BY: LAM DATE: 02/28/17 premature. REVIEW OF SYSTEMS: Significant for shortness of breath, arthritis, difficulty walking. Complete 12-point review of systems done and all other systems negative except the above-mentioned pertinent positives in the history of present illness. PHYSICAL EXAMINATION: GENERAL: A 71-year-old white male, alert, in no acute distress, appearing his stated age. VITAL SIGNS: 97% on 4 L nasal cannula, blood pressure 102/57, afebrile, heart rate 71, respirations 18-20 per minute. Weight 77 kg, height 167.6 cm. HEAD, EARS, EYES, NOSE, AND THROAT: Normocephalic, atraumatic. Pupils equal, round and reactive to light. Ears, nose, and throat without drainage, lesions, or exudates noted. NECK: Supple with no lymphadenopathy, JVD, or bruits noted. Trachea midline. No obvious goiter. CHEST: Symmetrical bilateral movement. No chest wall deformities noted. There is a well- healed sternotomy scar from previous coronary artery bypass grafting. CARDIOVASCULAR: Revealed regular rate and rhythm. S1, S2. No gallop, murmur, or rub. RESPIRATORY: Severely diminished breath sounds in the right chest with scattered rhonchi. Left clear. No use of accessory muscles noted. GASTROINTESTINAL: Abdomen is soft, nontender, nondistended. Positive bowel sounds in all four quadrants. No hepatosplenomegaly noted. : The patient voids without difficulty, otherwise deferred. MUSCULOSKELETAL: Without obvious kyphosis. No scoliosis noted. There is no significant bony abnormalities noted. Good range of motion all four extremities. NEUROLOGIC: With all 12 cranial nerves intact. No focal neurologic deficits noted. Alert and oriented x3. SKIN: Warm and dry with no breakdown or lesions noted. There is an indwelling chest tube in the right chest. There is normal turgor. EXTREMITIES: Without clubbing, cyanosis, or edema. 2+ pulses bilaterally. PSYCH: Normal mood and affect and pleasant. Answers all questions appropriately. HEMATOLOGIC/LYMPHATIC: Without any obvious petechiae or ecchymosis. There is no supraclavicular, cervical, or axillary lymphadenopathy noted. DATA: CT of the chest performed 02/28/2017 showing gas and fluid present in the right chest with obstruction at the bronchus intermedius. There is a small bore right chest tube in place. There is minimal aeration in the right upper lobe of the lung, and the left and middle lobe were completely atelectatic. There is enlargement of the descending thoracic aorta measuring 5.6 x 5.3, which has increased from 4.7 x 4.7 in 11/2015. There is a 1.8 cm right adrenal nodule with Hounsfield unit of 40 as well as calcified hepatic granuloma and tiny hiatal hernia. There is evidence of previous left-sided rib fractures as well as a well-healed median sternotomy from previous bypass surgery. CTA of the aorta 11/27/2015 from [facility] showing no dissection or aneurysm. There is mild diffuse mural thrombus throughout the distal thoracic aorta as well as aortic arch Consultation Report [place] [id number] [facility] [place]. [address] NAME: SUZE REID : [id number] STATUS : ADM IN [facility]#: [id number] AGE: 71 ADM/REG DATE : 02/24/17 MR#: [id number] REPORT SERV DATE: 02/28/17 DICTATED BY: THIEN DEL CID JR. DATE: 02/28/17 REPORT STATUS : Draft TRANSCRIBED BY: MODAlbert DATE: 02/28/17 without significant change when compared to 2012. There was no evidence of pulmonary embolus. There is a stable 1.8 cm soft tissue round nodule in the right adrenal gland with Hounsfield measuring 23. There is also a 2.1 x 2.6 cm enlarged infrahilar lymph node or central nodule compressing the bronchus intermedius. This renal function panel dated 02/28/2017; sodium 136, potassium 3.8, BUN 18, creatinine 1.13, glucose 85, magnesium 1.7, phosphorus 3.1, albumin 1.5. White blood count 13.9, hemoglobin 9.5, hematocrit 30.3, platelet 254. Procalcitonin dated 02/27/2017 was 2.63. Blood cultures dated 02/24/2017 negative in 48 hours. PROBLEM LIST: 1. Occlusion of the bronchus intermedius with an enlarged infrahilar lymph node or mass. 2. Postobstructive effusion consistent with possible empyema. Right chest. 3. Thoracic aortic aneurysm. 4. Coronary artery disease, status post coronary artery bypass grafting. 5. Peripheral vascular disease, status post stent to the lower extremity. 6. Hypertension. 7. Mixed hyperlipidemia. 8. Chronic anemia. 9. Benign prostatic hypertrophy. 10.Gait impairment, requiring use of a walker. 11.History of left knee MRSA septic arthritis. 12.A 40-pack year history of tobacco abuse, having quit in 2013. 13.Chronic antiplatelet therapy. IMPRESSION AND PLAN: A 71-year-old white male with second admission recently for a pneumothorax. Chest tube was placed, but not draining a significant amount of fluid. CT scan was performed, which shows fluid in the right chest consistent with a possible postobstructive empyema. He has enlarged parahilar lymph node in the right chest with what appears to be an occlusion of the bronchus intermedius. He had had a previous enlargement of either a lymph node or mass there in 11/2015. He does have a long smoking history and certainly is at risk for lung cancer. He has been on Plavix up until yesterday and will need to let that wash out before proceeding on with any kind of biopsy and decortication. We will check a thromboelastogram to see how sensitive he is to the Plavix. If he is a complete nonresponder, then we can consider proceeding on with surgery today or tomorrow. The need for surgery and biopsy was discussed with the patient, and he agrees to proceed and understands the risks, benefits, and expected outcomes of the procedure. He is also well aware that this could represent a possible malignant process. We will proceed when felt safe from a bleeding perspective. DICTATED BY: Cesar Yarbrough NP Consultation Report [address] [place]. [address] NAME: SUZE REID : [id number] STATUS : ADM IN PAT#: [id number] AGE: 71 ADM/REG DATE : 02/24/17 MR#: [id number] REPORT SERV DATE: 02/28/17 DICTATED BY: THIEN DEL CID JR. DATE: 02/28/17 REPORT STATUS : Draft TRANSCRIBED BY: LAM DATE: 02/28/17 MICHELLE/LAM Thien Del Cid Jr., M.D. / [id number] CC: Elina Lopes M.D.
--- NOTE | ~2017-02-24 | CN ---
Consultation Report [facility] [address] [facility] [place]. [address] NAME: SUZE REID : [id number] STATUS : ADM IN [facility]#: [id number] AGE: 71 ADM/REG DATE : 02/24/17 MR#: [id number] REPORT SERV DATE: 03/02/17 DICTATED BY: PABLITO ROGERS DATE: 03/02/17 REPORT STATUS : Draft TRANSCRIBED BY: MODL DATE: 03/02/17 CONSULTATION REPORT DATE OF CONSULTATION: REASON FOR REFERRAL: Squamous cell carcinoma of the lung. HISTORY OF PRESENT ILLNESS: Mr. Reid is a 71-year-old gentleman who presented with pneumonia and pneumothoraces. He developed empyema and on 03/01/2017 was taken to the operating room by Dr. Del Cid for that exploration and bronchoscopy. He had decortication of an empyema and found a large endobronchial tumor burden in the right bronchus intermedius. Biopsy showed moderately differentiated invasive squamous cell carcinoma. I reviewed the images on his pathology personally. A CT scan showed thoracic aneurysm, the lung mass, the fluid- filled empyema, but no evidence of metastatic disease. Of note, this was a chest CT only without intravenous contrast. He has been fairly healthy, but does have coronary artery disease. It has been stable since CABG done emergently in 2006. He has COPD, that has done well until recently, and chronic anemia that worsened with his acute infection. SOCIAL HISTORY: He is and retired. He has been smoking a pack a day for 40 years, quitting in 2013. FAMILY HISTORY: Negative for malignancy. REVIEW OF SYSTEMS: Positive for dyspnea, pain, difficulty walking, and arthritis. Remainder of the 12-point review of systems was negative. PHYSICAL EXAMINATION: GENERAL: Reveals a well-developed gentleman. He is in no acute distress. VITAL SIGNS: 97.9, 130/71, 136, 54. EYES: The eye exam shows that the lids and conjunctivae are without lesions. Pupils are equal, round, and reactive. HENT: Shows that lips and gums are without abnormalities. Oropharynx without thrush or stomatitis. NECK: Supple. There is no thyromegaly or mass. Trachea is midline. Neck is symmetric. CARDIOVASCULAR: Reveals an irregular rhythm. There is no murmur. There is no peripheral edema. LUNGS: The lungs showed coarse breath sounds bilaterally. A chest tube is in place on the right. ABDOMEN: Soft. There is no hepatosplenomegaly. SKIN: Without rash, nodules, or ecchymoses. PSYCHIATRIC: Shows normal insight and judgment with appropriate mood and affect. Consultation Report [facility] [address] [place]. [address] NAME: SUZE REID : [id number] STATUS : ADM IN PAT#: [id number] AGE: 71 ADM/REG DATE : 02/24/17 MR#: [id number] REPORT SERV DATE: 03/02/17 DICTATED BY: PABLITO ROGERS DATE: 03/02/17 REPORT STATUS : Draft TRANSCRIBED BY: MODL DATE: 03/02/17 NEUROLOGIC: The cranial nerves are grossly intact. Deep tendon reflexes are normal. LABORATORY STUDIES: I reviewed studies as noted in the HPI. Labs currently show a creatinine of 1.07 and glucose of 178. WBC 10.3, hemoglobin 8.4, and platelets 271,000. ASSESSMENT: 1. Lung cancer, squamous cell. a. As he recovers from his empyema, we will further image and determine the stage. He may benefit from some radiation therapy. Until the empyema is better cleared, he would not be a good candidate for chemotherapy. Depending on the stage, we will likely check PD-L1 status. 2. Anemia. We will follow. MANE/LAM Pablito Rogers M.D. / [id number] CC: Elina Lopes M.D.
--- NOTE | ~2017-02-24 | EGD ---
EGD REPORT [facility] [address] [address] NAME: NIRAJ REID : [id number] STATUS : ADM IN PAT#: [id number] AGE: 71 ADM/REG DATE : 02/24/17 MR#: [id number] REPORT SERV DATE: 03/06/17 DICTATED BY: SOY MOORE DATE: 03/06/17 REPORT STATUS : Draft [facility] DATE: 03/06/17 Pulmonology Patient Name: Niraj Reid Procedure Date: 03/06/2017 2:29 PM Date of : 1945 Attending MD: SHARONA MOORE MD Procedure Date No Time: 03/06/2017 Procedure: EBUS Bronchoscopy Indications: Obstructive lesion in GEO/RBI Providers: SHARONA MOORE MD Referring MD: THIEN MEZA JR., MD Medicines: Lidocaine 2% 20 mL Complications: No immediate complications Procedure: Pre-Anesthesia Assessment: - A History and Physical has been performed. Patient meds and allergies have been reviewed. The risks and benefits of the procedure and the sedation options and risks were discussed with the patient. All questions were answered and informed consent was obtained. Patient identification and proposed procedure were verified prior to the procedure by the physician and the nurse in the procedure room. Mental Status Examination: alert and oriented. Airway Examination: normal oropharyngeal airway. Respiratory Examination: clear to auscultation. CV Examination: normal and RRR, no murmurs, no S3 or S4. ASA Grade Assessment: IV - A patient with severe systemic disease that is a constant threat to life. After reviewing the risks and benefits, the patient was deemed in satisfactory condition to undergo the procedure. The anesthesia plan was to use general anesthesia. Immediately prior to administration of medications, the patient was re-assessed for adequacy to receive sedatives. The heart rate, respiratory rate, oxygen saturations, blood pressure, adequacy of pulmonary ventilation, and response to care were monitored throughout the procedure. The physical status of the patient was re-assessed after the procedure. After obtaining informed consent, the Bronchoscope was introduced through the mouth, via the endotracheal tube (the patient was intubated for the procedure) and advanced to the tracheobronchial tree. the BF [id number] was introduced through the mouth, via the endotracheal tube (the patient was intubated for the procedure) and advanced to the tracheobronchial tree. The procedure was accomplished without difficulty. The EGD REPORT [address] [address] NAME: NIRAJ REID : [id number] STATUS : ADM IN [facility]#: [id number] AGE: 71 ADM/REG DATE : 02/24/17 MR#: [id number] REPORT SERV DATE: 03/06/17 DICTATED BY: SOY MOORE DATE: 03/06/17 REPORT STATUS : Draft [facility]ANS[facility]: [facility] DATE: 03/06/17 patient tolerated the procedure well. Findings: The endotracheal tube is in good position. The visualized portion of the trachea is of normal caliber. The aleisha is sharp. The tracheobronchial tree was examined to at least the first subsegmental level. Endobronchial friable tumor was noted throughout the RUL, GEO and RBI. The distal RBI was obstructed. Balloon bronchoplasty was performed with no signficant improvement. The tumor was debulked but the distal RLL airways were completely obstructed with tumor. No stent was placed. The FIO2 was then lowered to less than 40% and argon plasma coagulation therapy (0.8 L/min, 15 Ferguson) was performed for destruction of tissue and hemostasis. Topical epinephrine was also instilled (20 ccs). EBUS TBNA of lymph node level 4L x 5 passes for cytology EBUS TBNA of lymph node level 7 x 6 passes for cytology Bronchoalveolar lavage was performed in the right lower lobe of the lung and sent for cell count, cytology, bacterial culture, viral smears \T\ culture, and fungal and AFB analysis. 60 mL of fluid were instilled. 20 mL were returned. The return was blood-tinged and cellular. Endobronchial biopsies were performed in the bronchus intermedius of the lung using a forceps and sent for histopathology examination. Five samples were obtained. Brushings were obtained in the bronchus intermedius of the lung and sent for routine cytology. One sample was obtained. Impression: Rapid On-Site Evaluation (JESUS): Preliminary cytology is POSITIVE for malignancy at 4L (N3 node) (final results are pending). Balloon bronchoplasty and APC therapy applied to the RBI The tumor was debulked but the distal RLL airways were completely obstructed with tumor. Patient is not a candidate for stent placement. Recommendation: - Await test results. - Chest X-ray. - Recommend Palliative XRT to the RBI - If a poor candidate for XRT, patient may be amenable to photodynamic therapy. Attending Participation: I personally performed the entire procedure. SHARONA MOORE MD 03/06/2017 4:19 PM This report has been signed electronically. Number of Addenda: 0 Note Initiated On: 03/06/2017 2:29 PM EGD REPORT [facility] [address] [address] NAME: NIRAJ REID : [birth year] STATUS : ADM IN [facility]#: [id number] AGE: 71 ADM/REG DATE : 02/24/17 MR#: [id number] REPORT SERV DATE: 03/06/17 DICTATED BY: SOY MOORE DATE: 03/06/17 REPORT STATUS : Draft TRANSCRIBED BY: [facility] DATE: 03/06/17 [facility] [address] uMnoz [id number]
--- NOTE | ~2017-02-24 | CN ---
Consultation Report [facility] [address]. [address] NAME: SUZE REID : [birth year] STATUS : ADM IN [facility]#: [id number] AGE: 71 ADM/REG DATE : 02/24/17 MR#: [id number] REPORT SERV DATE: 02/24/17 DICTATED BY: ALISSA CRAWFORD DATE: 02/24/17 REPORT STATUS : Draft TRANSCRIBED BY: MODL DATE: 02/24/17 CONSULT DATE OF CONSULTATION: 02/24/2017 REASON FOR CONSULTATION: Tension pneumothorax and atrial fibrillation with rapid ventricular response. HISTORY OF PRESENT ILLNESS: The patient is a 71-year-old gentleman with a past medical history of COPD, coronary artery disease, and hypertension, who was recently admitted to the hospital with COPD exacerbation and spontaneous right-sided pneumothorax, for which a chest tube was placed back at the end of January. He left AMA approximately one week ago from the hospital. He now returns with complaints of shortness of breath for the last couple of days as well as right-sided pleuritic chest pain that is worse with coughing and with inhalation. He also endorses a productive cough over the last several days with some blood-tinged sputum. On arrival to the emergency room here, he was found to have saturations in the 70s as well as atrial fibrillation with rapid ventricular response in the 160s. He had absent breath sounds on his right and a chest tube was placed in the emergency room by the ER physician for a suspected tension pneumothorax. Followup chest x-ray done immediately after placement of chest tube showed some residual right apical pneumothorax, but at that time, he was still having air leak in his chest tube. He is also given diltiazem bolus and started on a diltiazem drip for his atrial fibrillation and was sent to the ICU for further management. We are consulted for assistance in management of his tension pneumothorax with his chest tube as well as atrial fibrillation with rapid ventricular response. PAST MEDICAL HISTORY: 1. COPD. 2. Coronary artery disease, status post coronary artery bypass grafting. 3. Hypertension. 4. Hyperlipidemia. 5. Peripheral arterial disease. 6. Chronic anemia. 7. History of left knee arthroscopy. 8. History of lower extremity stent placement. SOCIAL HISTORY: Remote history of smoking, but has quit approximately four years ago. He socially drinks wine, but that is it. No IV drug abuse. FAMILY HISTORY: Positive for coronary artery disease and hypertension on his mother's side. REVIEW OF SYSTEMS: A 10-point review of systems negative is except as mentioned in the HPI. PHYSICAL EXAMINATION: Consultation Report [address] [place]. [address] NAME: SUZE REID : [id number] STATUS : ADM IN [facility]#: [id number] AGE: 71 ADM/REG DATE : 02/24/17 MR#: [id number] REPORT SERV DATE: 02/24/17 DICTATED BY: ALISSA CRAWFORD DATE: 02/24/17 REPORT STATUS : Draft TRANSCRIBED BY: LAM DATE: 02/24/17 VITAL SIGNS: Temperature 98.4, heart rate 99, respiratory rate 24, blood pressure 90/61. GENERAL: Chronically ill-appearing gentleman, in no acute distress. HEENT: Pupils equal, round, and reactive to light. Extraocular movements intact. Oropharynx clear. Moist mucous membranes. NECK: Supple. Nontender. No lymphadenopathy. No thyromegaly. No jugular venous distention. LUNGS: Decreased breath sounds on the right with some end-expiratory wheezes on the left. CARDIOVASCULAR: Irregularly irregular. No murmurs, rubs, or gallops. ABDOMEN: Soft, nontender, nondistended. Positive bowel sounds. No hepatosplenomegaly. EXTREMITIES: No cyanosis, clubbing, or edema. NEUROLOGIC: Alert and oriented x3. Cranial nerves intact. PSYCH: Mood appropriate. LABORATORIES AND IMAGING: Metabolic profile remarkable for BUN of 31, creatinine of 1.5, troponin 0.05, glucose 173. CBC remarkable for white count 43682 with 92% neutrophils, hemoglobin of 11. Blood gas with a pH of 7.47, pCO2 of 37, PO2 of 72 on 60% FiO2. Chest x- ray shows right basilar consolidation with right chest tube in place and right-sided apical pneumothorax. Lactic acid 1.6. ASSESSMENT AND PLAN: The patient is a 71-year-old gentleman with past medical history of COPD, coronary artery disease, and hypertension with recent admission for chronic obstructive pulmonary disease exacerbation and spontaneous right-sided pneumothorax, who now presents with a recurrent right-sided pneumothorax and possible right lower lobe pneumonia with atrial fibrillation with rapid ventricular response. 1. Right-sided tension pneumothorax. The patient is now status post small-bore chest tube placement in the emergency room. The patient says that his symptoms have dramatically improved since placement of the chest tube meaning that his shortness of breath and pain are much better well controlled now. Chest tube is currently placed to suction and has no air leak. Speaking with the emergency room physician, his chest x-ray was shot immediately on placement of the chest tube and he still had a fair amount of air leak at that time. He does have respiratory variation, so I suspect that his lung has now reexpanded, which is why we do not have an air leak. I will get a followup chest x- ray tonight just to ensure that the lung is reexpanding and he does not need a second chest tube for further evacuation of pneumothorax. We will place him on bronchodilator protocol, as he does have some wheezing in his left lung. No indication right now for steroids. We will get another followup chest x-ray in the morning and continue to follow along for chest tube management daily. 2. Atrial fibrillation with rapid ventricular response. The patient was given diltiazem, was started on the diltiazem drip in the emergency room. His heart rate is now well controlled in the 90s on 5 mg of diltiazem, but systolic blood pressure is ranging from the 80s to 90s. For now, we will discontinue the diltiazem drip given his borderline hypotension and just maintain him on his p.o. metoprolol. If he goes back into rapid ventricular response, we will consider starting an amiodarone drip and getting a PICC line. 3. Hospital-acquired pneumonia. The patient does have right lower lobe infiltrate, though Consultation Report [address] [address] NAME: SUZE REID : [id number] STATUS : ADM IN PAT#: [id number] AGE: 71 ADM/REG DATE : 02/24/17 MR#: [id number] REPORT SERV DATE: 02/24/17 DICTATED BY: ALISSA CRAWFORD DATE: 02/24/17 REPORT STATUS : Draft TRANSCRIBED BY: MODAlbert DATE: 02/24/17 this could be atelectasis from compression of his pneumothorax. We will follow his area of consolidation on subsequent chest x-rays and empirically start him on hospital- acquired pneumonia coverage for now. We will check blood cultures x2 as well as sputum culture and procalcitonin. If this area of consolidation clears as his lung reexpands, this may just be atelectasis, so we can possibly discontinue antibiotics in the coming day or two. We will continue to follow along the patient with you. 4. The patient will be on deep vein thrombosis prophylaxis and gastrointestinal prophylaxis. 5. The patient is full code. 6. Appreciate the consult. Please call with questions. 7. The patient does have a high probability of sudden clinically significant or imminent life-threatening deterioration. Total critical care time spent on this patient was 40 minutes. MAGALIS/LAM Alissa Crawford MD / [id number] CC: Elina Lopes M.D.
--- NOTE | ~2017-02-24 | CN ---
Consultation Report [facility] [address] [place]. [address] NAME: SUZE REID : [id number] STATUS : ADM IN [facility]#: [id number] AGE: 71 ADM/REG DATE : 02/24/17 MR#: [id number] REPORT SERV DATE: 03/03/17 DICTATED BY: MEG GUARDADO DATE: 03/03/17 REPORT STATUS : Draft TRANSCRIBED BY: MODL DATE: 03/03/17 INFECTIOUS DISEASE CONSULTATION DATE OF CONSULTATION: 03/03/2017 REASON FOR CONSULTATION: Antibiotic recommendations. HISTORY OF PRESENT ILLNESS: This is a 71-year-old man, known to our service from last year for treatment of MRSA septic arthritis in his left knee. More recently, the patient had been admitted in January with a spontaneous pneumothorax and left the hospital against medical advice, only to return on 02/24 with worsening shortness of breath, cough, and chest pain and was found to have recurrent upper lobe pneumothorax. New chest tube was placed and CT scan was done, which showed hydropneumothorax on the right with loculations and evidence of probable pneumonia along with concern for lung mass. The patient was taken to the operating room by Dr. Del Cid on 03/01. I should note that on admission, he was placed on vancomycin and cefepime. Findings at surgery were of an endobronchial lesion obstructing the bronchus intermedius with a synchronous lesion in the right upper lobe and right mainstem bronchus. Biopsies were consistent with squamous cell carcinoma and final pathology confirms this. There was purulent material in the airway with mucus plugs obstructing the right mainstem bronchus and upon entering the chest, a loculated effusion with purulent material was also found consistent with an empyema, and there was a peel on the lung tissue and the patient underwent decortication. Postoperatively, he is doing reasonably well. He is on 5 L nasal cannula oxygen and says he feels better today. Right-sided chest tube remains. He had a right-sided PICC line placed yesterday. Cultures from surgery have about 10 colonies on the plate from the airway material that was sent for culture. The pleural fluid/empyema material has a negative culture to date. The patient's cefepime was changed to Zosyn yesterday, and he remains on vancomycin. PAST MEDICAL HISTORY: Otherwise, notable for coronary artery disease with previous bypass surgery, BPH, hypertension, hyperlipidemia, peripheral arterial disease, chronic anemia. ALLERGIES: AMOXICILLIN, REACTION NOT KNOWN. PRESENT MEDICATIONS: In addition to the antibiotics mentioned include vitamin C, Lipitor, Dulcolax, Lovenox, insulin sliding scale, Lopressor, Protonix, Flomax, Orazinc. SOCIAL HISTORY: He is a long-term smoker. Lives with his . Retired from the [employer]. Drinks occasional wine. FAMILY HISTORY: Noncontributory. REVIEW OF SYSTEMS: Otherwise, negative. Consultation Report [address] [address] NAME: SUZE REID : [id number] STATUS : ADM IN [facility]#: [id number] AGE: 71 ADM/REG DATE : 02/24/17 MR#: [id number] REPORT SERV DATE: 03/03/17 DICTATED BY: MEG GUARDADO DATE: 03/03/17 REPORT STATUS : Draft TRANSCRIBED BY: LAM DATE: 03/03/17 PHYSICAL EXAMINATION: VITAL SIGNS: The patient weighs 75 kg. He is afebrile and has been since admission. Blood pressure 104/62, pulse 57, oxygen saturation 95% on 5 L. GENERAL: He is alert and pleasant, in no acute distress. HEAD AND NECK: Show a clear oral cavity without thrush. Supple neck. LUNGS: Clear to auscultation anteriorly. Decreased breath sounds in lateral bases. The patient has a right-sided chest tube. ABDOMEN: Soft, nontender, nondistended. Decreased bowel sounds. EXTREMITIES: PICC line in right upper extremity. No significant edema of his lower extremities. The left knee is without inflammation, warmth, or soft tissue swelling. NEUROLOGIC: Grossly intact. LABORATORY STUDIES: White blood cell count today 9.5, hemoglobin 8.7, platelets 306. Creatinine 1.20, albumin 1.8. The patient's white blood cell count on admission, 02/24, was 28.5. His procalcitonin on admission 2.78. MICROBIOLOGY STUDIES: As outlined above. Admission blood cultures are negative. Admission sputum culture just grew normal blayne. IMAGING STUDIES: As noted. The patient's chest x-ray yesterday is reviewed and shows decreasing loculated right pleural effusion with improved aeration overall. IMPRESSION: Pneumonia and empyema in a patient with newly diagnosed squamous cell carcinoma of the lung, status post decortication on 03/01. There is some growth from the operative cultures from his airways, and the pleural fluid culture is negative to date. He does have a history of MRSA septic arthritis, which appears resolved in his left knee. PLAN: For now, we will continue the vancomycin and Zosyn pending further culture results, and we will follow with you. CHICO/LAM Meg Guardado M.D. / [id number] CC: Elina Lopes M.D.
--- NOTE | ~2017-02-24 | OP ---
Record Of Operation [facility] [address] [facility] [place] [address] NAME: SUZE REID : [id number] STATUS : ADM IN [facility]#: [id number] AGE: 71 ADM/REG DATE : 02/24/17 MR#: [id number] REPORT SERV DATE: 03/01/17 DICTATED BY: THIEN DEL CID JR. DATE: 03/01/17 REPORT STATUS : Draft TRANSCRIBED BY: LAM DATE: 03/01/17 DATE OF PROCEDURE: 03/01/2017 PREOPERATIVE DIAGNOSES: Obstruction of right bronchus intermedius, likely locally advanced lung cancer, pneumonia with empyema, anemia of chronic disease, severe chronic obstructive pulmonary disease, coronary artery disease, status post previous bypass surgery, benign prostatic hypertrophy, history of Methicillin-resistant Staphylococcus aureus, septic arthritis, and atrial fibrillation. POSTOPERATIVE DIAGNOSIS: Squamous cell lung cancer. NAME OF OPERATION: Bronchoscopy with endobronchial biopsy for diagnosis, bronchoalveolar lavage, right lung, right thoracoscopy with complete decortication. SURGEON: Thien Del Cid M.D. RESIDENT SURGEON: Duke Gutierrez MD THERMOSTAT MECHANIC: Jose G Calvert. ANESTHESIA: General endotracheal. FINDINGS: The patient was noted to have an endobronchial lesion obstructing the bronchus intermedius. There was also a synchronous lesion in the right upper lobe and in the right mainstem bronchus. Multiple biopsies were taken, demonstrated this to be a squamous cell carcinoma. There was purulent material in the airway with mucous plugs obstructing the right mainstem bronchus. Upon entering the right chest, we also found a loculated effusion with purulent material suggestive of an empyema. There was a peel on the lung tissue. There was obvious poor ventilation of the right lower lobe and middle lobe compatible with his obstructive lesion airway. Cultures and cytology were sent on the pleural fluid. Final pathology is pending. DETAILS OF OPERATION: After adequate general anesthesia, the patient was intubated with a single-lumen endotracheal tube. Bronchoscopy was performed noting the above findings. Endobronchial biopsies were performed removing the tumor from the bronchus intermediate region. There were separate synchronous lesions in the right upper lobe bronchus. These were not biopsied. They looked similar to the other tumor. This was obviously a cancer. Frozen section confirmed this to be a squamous cell carcinoma. The pus was removed from the airway and sent for cultures. This was done through BAL. The patient was then repositioned in the left lateral decubitus position, with the right chest was prepped and draped in routine sterile fashion. A small incision made overlying the lower intercostal space. Through a single incision site, the above findings noted. The chest was entered noting a loculated parapneumonic effusion. Laterally and posteriorly there was a pocket of purulent material, it was entered. This was suggestive of more of an empyema. Fluid was sent for cultures and cytology. The lung was decorticated. The chest was thoroughly irrigated with normal saline solution. The fluid was sent for cultures and cytology. Two straight 32- Record Of Operation [address] [place]. [address] NAME: SUZE REID : [id number] STATUS : ADM IN [facility]#: [id number] AGE: 71 ADM/REG DATE : 02/24/17 MR#: [id number] REPORT SERV DATE: 03/01/17 DICTATED BY: THIEN DEL CID JR. DATE: 03/01/17 REPORT STATUS : Draft TRANSCRIBED BY: LAM DATE: 03/01/17 Thai chest tubes were placed. The lung was reinflated. The trocar sites were closed with running Vicryl sutures. The skin was closed with running monofilament suture. A Dermabond dressing was applied and the procedure was terminated at this point. The patient tolerated the procedure well and taken back to recovery room in stable condition. BENJI/LAM Thien Del Cid Jr., M.D. / [id number] CC: Elina Lopes M.D.
--- NOTE | ~2017-02-24 | DS ---
Discharge Summary [id number] [place]. [address] NAME: SUZE REID : [id number] STATUS : DIS IN PAT#: [id number] AGE: 71 ADM/REG DATE : 02/24/17 MR#: [id number] REPORT SERV DATE: 03/17/17 DICTATED BY: FOX MARTINEZ DATE: 03/16/17 REPORT STATUS : Draft TRANSCRIBED BY: MODAlbert DATE: 03/16/17 Data Collection from hospitalization DISCHARGE DIAGNOSES: 1. Shortness of breath/acute respiratory failure secondary to hypoxia, secondary to right pneumothorax, and right lung pneumonia. 2. Right pneumothorax. 3. Right lung methicillin-resistant Staphylococcus aureus pneumonia with empyema. 4. Right lung squamous cell lung cancer. 5. Atrial fibrillation with rapid ventricular response. 6. Coronary artery disease, status post coronary artery bypass grafting. 7. Gait impairment. 8. Hypertension. 9. Peripheral arterial disease. 10.Chronic anemia. 11.Former smoker. 12.Hyperlipidemia. CONSULTATIONS: 1. Byron Sher MD. 2. Srinivas Del Cid M.D. 3. Pablito Landers M.D. 4. Freddy Guardado M.D. PROCEDURES: 1. Bronchoscopy with endobronchial biopsy for diagnosis, bronchoalveolar lavage, right lung, right thoracoscopy with complete decortication, 03/01/2017. 2. CT scan of the chest without contrast, 02/27/2017. PATHOLOGY: Right pleural fluid (thin prep, smears, cell block)-negative for malignancy. Abundant neutrophils consistent with empyema, right bronchus intermedius, endobronchial biopsy-invasive squamous cell carcinoma moderately differentiated submitted as "additional right bronchus intermedius" biopsies-invasive squamous cell carcinoma, moderately differentiated. Level 4 L lymph node, EBUS-guided fine-needle aspiration (smear and cell block)-positive metastatic squamous cell carcinoma. Level 7 lymph node, EBUS-guided fine needle aspiration (smears and cell block)-positive metastatic squamous cell carcinoma. Lung right lower lobe bronchoalveolar lavage (thin prep)-positive squamous cell carcinoma. Right bronchus intermedius biopsy-moderately differentiated squamous cell carcinoma-see comment. DISCHARGE MEDICATIONS: Cordarone 200 mg twice a day, Lipitor 20 mg at bedtime, Plavix 75 mg daily, hydrochlorothiazide 25 mg daily, Zyvox 600 mg every 12 hours, Claritin 10 mg daily as needed, Cozaar 50 mg daily, Lopressor 25 mg twice a day, Percocet 5/325 one to two tablets every four hours as needed, K-Dur 20 mEq daily, Flomax 0.4 mg at bedtime. CONDITION ON DISCHARGE: Stable. DISPOSITION: The patient was discharged home on a regular diet with activities as instructed. He would follow up with Dr. Pablito Landers, 03/10/2017, and he would follow Discharge Summary [address] [address] NAME: SUZE REID : [id number] STATUS : DIS IN PAT#: [id number] AGE: 71 ADM/REG DATE : 02/24/17 MR#: [id number] REPORT SERV DATE: 03/17/17 DICTATED BY: FOX MARTINEZ DATE: 03/16/17 REPORT STATUS : Draft TRANSCRIBED BY: LAM DATE: 03/16/[address] Srinivas Del Cid, 04/03/2017. He would follow up with his primary care physician in 2 weeks following discharge. HOSPITAL COURSE: This is a 71-year-old man who had recently been admitted to [facility] on 02/15/2017 where he was treated for a right pneumothorax and underwent chest tube placement. The chest tube was removed Monday prior to this admission. The following day, on Monday, he had gone home AMA. Family members reported that his breathing progressively worsened. He reports that he noticed increased shortness of breath and difficulty taking good deep breaths as well as cough and pain when coughing and breathing. He reports that this worsened progressively over the last five days since he left [facility] Monday prior to this admission. He presented to the [facility] Emergency Room with worsening complaints of shortness of breath, cough, pain when breathing as well as the patient reports that he was also very weak. He was admitted to the hospital for further evaluation and treatment. Upon admission, the chest tube was placed. White blood cell count was 28.5. On the day of admission, this decreased to 13.7 the following morning. He had been admitted with atrial fibrillation with rapid ventricular response which responded well to Cardizem. This was likely respiratory in origin. The patient was now off Cardizem and remained on Lopressor. Heart rate was more stable. Admission troponin was 0.05. His home medication regimen of Plavix, SUSIE inhibitor, statin, and beta-sara were continued. Sequential devices will be placed for DVT prophylaxis. The patient has a history of medical noncompliance. We would continue to monitor his renal function. He was seen by Dr. Byron Sher in the emergency room. It was suspected that he had tension pneumothorax. Chest tube was placed to suction. There was no air leak. Blood and sputum cultures were obtained. DVT and GI prophylaxis were started. On 02/26/2017, his pneumothorax had resolved. He complained of nasal irritation with O2. He still reported right chest wall pain. Blood pressure range was stable. He was able to tolerate sitting up in a chair. On 02/28/2017, he was seen by Dr. Srinivas Del Cid. He had undergone a CT scan of the chest without contrast. He had been found to have fluid in the right chest with poor aeration of the right lung consistent with empyema. There was obstruction of the bronchus intermedius in the posterior basilar pleural space. We have been asked to see the patient regarding possible decortication and biopsy of the right peritracheal lymph node. He was felt to have occlusion of the bronchus intermedius with an enlarged infrahilar lymph node or mass and postobstructive effusion consistent with possible empyema, right chest. The chest tube was not draining a significant amount of fluid. He does have a long smoking history and had a risk for lung cancer. Plavix had been stopped the day previously. Treatment options were discussed and it was felt he should proceed with surgical intervention. He was on Cardizem for his atrial fibrillation. He did have some hypotension. Magnesium supplementation was given. H and H remained stable. He complained of right-sided chest pain. Plavix remained on hold. On 03/01/2017, he did have some brief hypotension during the night. He was now off [place]- Synephrine drip. He was in no distress. The pressure medications were stopped. Lopressor was decreased. He was taken to the operating room by Dr. Srinivas Del Cid where he underwent the above-mentioned procedure. He tolerated this well. There were no complications. On postop day 1, biopsy pathology revealed small cell. He seemed to be awake and alert. He did complain of some pain. White blood cell count was 10.3. A PICC line was inserted. The Discharge Summary [address] [place]. [address] NAME: SUZE REID : [id number] STATUS : DIS IN PAT#: [id number] AGE: 71 ADM/REG DATE : 02/24/17 MR#: [id number] REPORT SERV DATE: 03/17/17 DICTATED BY: FOX MARTINEZ DATE: 03/16/17 REPORT STATUS : Draft TRANSCRIBED BY: MODL DATE: 03/16/17 patient was seen by Dr. Pablito Landers regarding squamous cell carcinoma of the lung. He had decortication of an empyema and was found to have large endobronchial tumor burden in the right bronchus intermedius. Biopsy revealed moderately differentiated invasive squamous cell carcinoma. CT scan showed thoracic aneurysm, lung mass, fluid-filled empyema, but no evidence of metastatic disease. It was felt that he may benefit from some radiation therapy until the empyema was better cleared. He would not be a good candidate for chemotherapy. On 03/03/2017, he was seen by Dr. Freddy Guardado. Regarding antibiotic recommendation, cefepime was changed to Zosyn. He remained on vancomycin. His impression included pneumonia and empyema in a patient with newly diagnosed squamous cell carcinoma of the lung. There was some growth from the operative cultures from his airways and the pleural fluid culture was negative to date. He does have a history of MRSA septic arthritis which appears to have resolved in his left knee. Vancomycin and Zosyn would be continued pending further culture results. IV amiodarone was started for atrial fibrillation. His pain was controlled. The patient did exhibit signs of severe depression and described feeling worthless. He was neglecting himself to the point of urinating on himself because he did not feel that he was worth the staff time to assist him. He also had a poor appetite and did not feel like eating due to someone else's need for his food. It was felt that his long-term healing from his physical illness would benefit greatly with assessment for depression as he may improve with his self-care. He refused pain medication and denied any pain. The next day, he was afebrile. He was in a sinus rhythm. He still had some dyspnea. On 03/05/2017, white count was 9.8. He did report some right-sided chest pain especially with deep breathing and also with movement. He did not have shortness of breath with activity. Discharge planning was performed. On 03/08/2017, he said he felt great. He was in no distress. His wounds were clean, dry, and intact. Chest tubes were removed. Discharge instructions were given. He remained afebrile. Creatinine level was 1.37. Discharge instructions were given. Due to his improved and stable condition, he was discharged home to be followed by home health care with the above-stated instructions. Information collected by: Aura Ricardo I submit the above information as my discharge summary. TG/MODL Fox Martinez M.D. / [id number] CC: Elina Lopes M.D. Hal Hill, M.D. James Headrick Jr., M.D. Edward Arrowsmith, M.D.
[~2017-02-24 16:58] MED LIST changes: +ANADS PO; +CLARIT10 PO; +K500 PO; +ULTRAM50 PO
[2017-02-24] MEDS ORDERED: FLOMAX4 PO (17:39)
[2017-02-24] MEDS ORDERED: COZ50 PO (17:39)
[2017-02-24] MEDS ORDERED: HYDROCHLOROT25 MG PO (17:40)
[2017-02-24] MEDS ORDERED: CLARIT10 PO (17:40)
[2017-02-24] MEDS ORDERED: KDUR20 PO (17:40)
[2017-02-24] MEDS ORDERED: LOP25 PO (17:40)
[2017-02-24] MEDS ORDERED: LIPITOR20 PO (17:40)
[2017-02-24] MEDS ORDERED: PLAVIX PO (17:40)
[2017-02-24] MEDS ORDERED: ULTRAM50 (17:41)
[2017-02-24 17:47] LABS: BASOPHILS 0.1 %; BASOPHILS ABSOLUTE 0.03 10/3/uL (0.0-0.16); EOSINOPHILS 0 %; EOSINOPHILS ABSOLUTE 0.01 10/3/uL (0.0-0.53); HEMOGLOBIN 11.2 g/dL (13.6-17.8); IMMATURE GRANULOCYTES 0.4 %; IMMATURE GRANULOCYTES ABSOLUTE 0.12 10/3/uL (0.0-0.11); LYMPHOCYTES 3.7 %; LYMPHOCYTES ABSOLUTE 1.06 10/3/uL (0.67-4.30); MEAN CORPUS HGB CONC 31.4 g/dL (32.0-36.0); MEAN CORPUSCULAR HEMOGLOB 26.8 pg (26.0-34.0); MEAN CORPUSCULAR VOLUME 85.4 fL (80-100); MEAN PLATELET VOLUME 8.8 fL (9.2-13.0); MONOCYTES 3.5 %; NEUTROPHILS 92.3 %; NEUTROPHILS ABSOLUTE 26.29 10/3/uL (2.02-8.40); PLATELET COUNT 283 10/3/uL (150-400); RED CELL COUNT 4.18 10/6/uL (4.7-6.1)
[2017-02-24 17:49] LABS: ER CBC TAT 0 Hrs 05 Mins; HEMATOCRIT 35.7 % (40.0-51.0); WHITE BLOOD CELLS 28.5 10/3/uL (4.5-10.5)
[2017-02-24 17:51] LABS: MANUAL DIFF NO %
[2017-02-24 17:55] LABS: INTERNATIONAL NORMAL RATI 1.4 UNITS (-); PARTIAL THROMBO TIME 24.7 SEC (22.5-37.2); PROTIME (NOT ORD) 17.2 SEC (12.0-14.5)
[2017-02-24 18:05] LABS: BUN (BLOOD UREA NITROGEN) 31 MG/DL (6-23); CALCIUM, SERUM 8.8 MG/DL (8.5-10.4); CHLORIDE, SERUM 96 MMOL/L (96-112); CO2 (CARBON DIOXIDE) 27 MMOL/L (24-34); CREATININE 1.59 MG/DL (0.70-1.30); GFR AFRICAN AMERICAN 50 ML/MIN (>=60); GFR NON AFRICAN AMERICAN 43 ML/MIN (>=60); GLUCOSE, SERUM 173 MG/DL (60-99); POTASSIUM, SERUM 4.4 MMOL/L (3.5-5.3); SODIUM, SERUM 135 MMOL/L (135-148)
[2017-02-24 18:07] LABS: CHEST PAIN PROFILE TAT 0 Hrs 23 Mins; TROPONIN I 0.05 NG/ML (<0.05)
[2017-02-24 18:08] LABS: ER DIFF TAT 0 Hrs 24 Mins; GIANT PLATELET RARE; HYPOCHROMIA 1+ (3-10/OIF) (0-2/OIF); LYMPHOCYTES 4 %; LYMPHOCYTES ABSOLUTE (CALC) 1.14 10/3/uL (0.67-4.30); MONOCYTES 2 %; MONOCYTES ABSOLUTE (CALC) 0.57 10/3/uL (0.21-1.20); NEUTROPHILS ABSOLUTE (CALC) 26.79 10/3/uL (2.02-8.40); OVALOCYTES 1+ (3-10/OIF) (0-2/OIF); PLATELET ESTIMATE ADQ (ADEQUATE); SEGMENTED NEUTROPHIL (0) 94 %; SPHEROCYTES FEW (3-10/OIF); TOTAL NUCLEATED CELLS 100
[2017-02-24 18:20] LABS: ALLENS TEST Pos; BE (BASE EXCESS) 2.4 MEQ/L (0 +/- 2.5); CARBOXYHEMOGLOBIN 1.2 % (0-3); HCO3 (ACTUAL BICARBONATE) 26.1 MEQ/L (23-27); HEMOBLOGIN CONTENT 10.9 G/DL (14-18); INSTRUMENT SERIAL # 8087; METHEMOGLOBIN 0.2 % (0-3); O2 CONTENT 14.2 VOL% (18-24); OPERATOR ID 14335; PCO2 (CO2 TENSION) 37 MMHG (35-45); PO2 (O2 TENSION) 72 MMHG (79-93); SAMPLE Arterial; pH 7.47 (7.37-7.43)
[2017-02-24 18:50] LABS: LACTATE 1.6 MMOL/L (0.3-2.4)
[2017-02-25 05:15] LABS: BASOPHILS 0.1 %; BASOPHILS ABSOLUTE 0.02 10/3/uL (0.0-0.16); EOSINOPHILS 1.5 %; EOSINOPHILS ABSOLUTE 0.21 10/3/uL (0.0-0.53); HEMATOCRIT 29.7 % (40.0-51.0); HEMOGLOBIN 9.2 g/dL (13.6-17.8); IMMATURE GRANULOCYTES 0.3 %; IMMATURE GRANULOCYTES ABSOLUTE 0.04 10/3/uL (0.0-0.11); LYMPHOCYTES 10.2 %; MANUAL DIFF NO %; MEAN CORPUSCULAR HEMOGLOB 26.4 pg (26.0-34.0); MEAN CORPUSCULAR VOLUME 85.3 fL (80-100); MEAN PLATELET VOLUME 8.9 fL (9.2-13.0); MONOCYTES 4.8 %; MONOCYTES ABSOLUTE 0.66 10/3/uL (0.21-1.20); NEUTROPHILS 83.1 %; NEUTROPHILS ABSOLUTE 11.38 10/3/uL (2.02-8.40); PLATELET COUNT 220 10/3/uL (150-400); RED CELL COUNT 3.48 10/6/uL (4.7-6.1); WHITE BLOOD CELLS 13.7 10/3/uL (4.5-10.5)
[2017-02-25 05:35] LABS: BUN (BLOOD UREA NITROGEN) 28 MG/DL (6-23); CALCIUM, SERUM 8.2 MG/DL (8.5-10.4); CHLORIDE, SERUM 104 MMOL/L (96-112); CO2 (CARBON DIOXIDE) 26 MMOL/L (24-34); CREATININE 1.17 MG/DL (0.70-1.30); GFR AFRICAN AMERICAN 72 ML/MIN (>=60); GFR NON AFRICAN AMERICAN 62 ML/MIN (>=60); POTASSIUM, SERUM 3.8 MMOL/L (3.5-5.3); SODIUM, SERUM 140 MMOL/L (135-148)
[2017-02-25 05:36] LABS: GLUCOSE, SERUM 91 MG/DL (60-99)
[2017-02-25 07:05] LABS: PHOSPHORUS, SERUM 4.1 MG/DL (2.5-4.5)
[2017-02-26 04:57] LABS: BASOPHILS 0.2 %; BASOPHILS ABSOLUTE 0.02 10/3/uL (0.0-0.16); EOSINOPHILS 2.2 %; EOSINOPHILS ABSOLUTE 0.28 10/3/uL (0.0-0.53); HEMATOCRIT 29.9 % (40.0-51.0); HEMOGLOBIN 9.3 g/dL (13.6-17.8); IMMATURE GRANULOCYTES 0.2 %; IMMATURE GRANULOCYTES ABSOLUTE 0.03 10/3/uL (0.0-0.11); LYMPHOCYTES 7.8 %; LYMPHOCYTES ABSOLUTE 0.98 10/3/uL (0.67-4.30); MEAN CORPUS HGB CONC 31.1 g/dL (32.0-36.0); MEAN CORPUSCULAR VOLUME 83.5 fL (80-100); MEAN PLATELET VOLUME 8.6 fL (9.2-13.0); MONOCYTES 3.7 %; MONOCYTES ABSOLUTE 0.47 10/3/uL (0.21-1.20); NEUTROPHILS 85.9 %; PLATELET COUNT 187 10/3/uL (150-400); RBC DISTRIBUTION WIDTH 15.7 % (12.0-16.0); RED CELL COUNT 3.58 10/6/uL (4.7-6.1); WHITE BLOOD CELLS 12.6 10/3/uL (4.5-10.5)
[2017-02-26 04:58] LABS: MANUAL DIFF NO %
[2017-02-26 05:14] LABS: CALCIUM, SERUM 8.6 MG/DL (8.5-10.4); CHLORIDE, SERUM 103 MMOL/L (96-112); CO2 (CARBON DIOXIDE) 26 MMOL/L (24-34); GFR AFRICAN AMERICAN 70 ML/MIN (>=60); GFR NON AFRICAN AMERICAN 60 ML/MIN (>=60); GLUCOSE, SERUM 90 MG/DL (60-99); POTASSIUM, SERUM 3.9 MMOL/L (3.5-5.3); SODIUM, SERUM 138 MMOL/L (135-148)
[2017-02-26 05:30] LABS: BUN (BLOOD UREA NITROGEN) 23 MG/DL (6-23); PHOSPHORUS, SERUM 3.1 MG/DL (2.5-4.5)
[2017-02-27 03:59] LABS: BASOPHILS 0.2 %; BASOPHILS ABSOLUTE 0.03 10/3/uL (0.0-0.16); EOSINOPHILS ABSOLUTE 0.34 10/3/uL (0.0-0.53); HEMATOCRIT 30.5 % (40.0-51.0); HEMOGLOBIN 9.6 g/dL (13.6-17.8); IMMATURE GRANULOCYTES 0.2 %; IMMATURE GRANULOCYTES ABSOLUTE 0.04 10/3/uL (0.0-0.11); LYMPHOCYTES 6.1 %; LYMPHOCYTES ABSOLUTE 1.01 10/3/uL (0.67-4.30); MEAN CORPUS HGB CONC 31.5 g/dL (32.0-36.0); MEAN CORPUSCULAR HEMOGLOB 26.6 pg (26.0-34.0); MEAN CORPUSCULAR VOLUME 84.5 fL (80-100); MEAN PLATELET VOLUME 8.7 fL (9.2-13.0); MONOCYTES 4.5 %; MONOCYTES ABSOLUTE 0.75 10/3/uL (0.21-1.20); NEUTROPHILS ABSOLUTE 14.46 10/3/uL (2.02-8.40); RBC DISTRIBUTION WIDTH 15.7 % (12.0-16.0); RED CELL COUNT 3.61 10/6/uL (4.7-6.1); WHITE BLOOD CELLS 16.6 10/3/uL (4.5-10.5)
[2017-02-27 04:01] LABS: MANUAL DIFF NO %; PLATELET COUNT 246 10/3/uL (150-400)
[2017-02-27 04:07] LABS: BUN (BLOOD UREA NITROGEN) 19 MG/DL (6-23); CALCIUM, SERUM 8.8 MG/DL (8.5-10.4); CHLORIDE, SERUM 98 MMOL/L (96-112); CO2 (CARBON DIOXIDE) 28 MMOL/L (24-34); CREATININE 1.14 MG/DL (0.70-1.30); GFR AFRICAN AMERICAN 74 ML/MIN (>=60); GFR NON AFRICAN AMERICAN 64 ML/MIN (>=60); GLUCOSE, SERUM 96 MG/DL (60-99); PHOSPHORUS, SERUM 2.9 MG/DL (2.5-4.5); POTASSIUM, SERUM 3.7 MMOL/L (3.5-5.3); SODIUM, SERUM 135 MMOL/L (135-148)
[2017-02-27 10:57] LABS: PROCALCITONIN 2.63 ng/mL (<0.5)
[2017-02-28 04:06] LABS: BASOPHILS 0.1 %; BASOPHILS ABSOLUTE 0.02 10/3/uL (0.0-0.16); EOSINOPHILS 3.6 %; HEMATOCRIT 30.3 % (40.0-51.0); HEMOGLOBIN 9.5 g/dL (13.6-17.8); IMMATURE GRANULOCYTES 0.4 %; IMMATURE GRANULOCYTES ABSOLUTE 0.05 10/3/uL (0.0-0.11); LYMPHOCYTES ABSOLUTE 1.25 10/3/uL (0.67-4.30); MEAN CORPUS HGB CONC 31.4 g/dL (32.0-36.0); MEAN CORPUSCULAR HEMOGLOB 26.7 pg (26.0-34.0); MEAN CORPUSCULAR VOLUME 85.1 fL (80-100); MEAN PLATELET VOLUME 8.6 fL (9.2-13.0); MONOCYTES 3.2 %; MONOCYTES ABSOLUTE 0.45 10/3/uL (0.21-1.20); NEUTROPHILS 83.7 %; NEUTROPHILS ABSOLUTE 11.59 10/3/uL (2.02-8.40); PLATELET COUNT 254 10/3/uL (150-400); RBC DISTRIBUTION WIDTH 15.7 % (12.0-16.0); RED CELL COUNT 3.56 10/6/uL (4.7-6.1); WHITE BLOOD CELLS 13.9 10/3/uL (4.5-10.5)
[2017-02-28 04:07] LABS: MANUAL DIFF NO %
[2017-02-28 04:21] LABS: ALBUMIN 1.5 G/DL (3.5-5.0); BUN (BLOOD UREA NITROGEN) 18 MG/DL (6-23); CALCIUM, SERUM 8.7 MG/DL (8.5-10.4); CHLORIDE, SERUM 98 MMOL/L (96-112); CO2 (CARBON DIOXIDE) 32 MMOL/L (24-34); CREATININE 1.13 MG/DL (0.70-1.30); GFR AFRICAN AMERICAN 75 ML/MIN (>=60); GFR NON AFRICAN AMERICAN 65 ML/MIN (>=60); GLUCOSE, SERUM 85 MG/DL (60-99); PHOSPHORUS, SERUM 3.1 MG/DL (2.5-4.5); POTASSIUM, SERUM 3.8 MMOL/L (3.5-5.3); SODIUM, SERUM 136 MMOL/L (135-148)
[2017-02-28 10:48] LABS: TEG - ANGLE 61.8 DEG (53-72); TEG - COAGULATION INDEX 2.4 (-3 TO 3); TEG - RATE 4.7 MIN (5.0-10.0)
[2017-02-28 10:49] LABS: MAX AMP (ADP) 71.3 MM (35-68); TEG PLAVIX/EFFIENT/TICLID(ADP) 3.9 % INHIB (< 40)
[2017-03-01 05:18] LABS: BASOPHILS 0.1 %; BASOPHILS ABSOLUTE 0.02 10/3/uL (0.0-0.16); EOSINOPHILS 2.5 %; EOSINOPHILS ABSOLUTE 0.37 10/3/uL (0.0-0.53); IMMATURE GRANULOCYTES 0.3 %; IMMATURE GRANULOCYTES ABSOLUTE 0.05 10/3/uL (0.0-0.11); INTERNATIONAL NORMAL RATI 1.4 UNITS (-); LYMPHOCYTES 8.3 %; LYMPHOCYTES ABSOLUTE 1.24 10/3/uL (0.67-4.30); MEAN CORPUSCULAR HEMOGLOB 25.8 pg (26.0-34.0); MEAN CORPUSCULAR VOLUME 83.1 fL (80-100); MEAN PLATELET VOLUME 8.6 fL (9.2-13.0); MONOCYTES 3.9 %; MONOCYTES ABSOLUTE 0.58 10/3/uL (0.21-1.20); NEUTROPHILS 84.9 %; NEUTROPHILS ABSOLUTE 12.77 10/3/uL (2.02-8.40); PLATELET COUNT 316 10/3/uL (150-400); PROTIME (NOT ORD) 17.1 SEC (12.0-14.5); RED CELL COUNT 3.49 10/6/uL (4.7-6.1)
[2017-03-01 05:23] LABS: ALBUMIN 1.5 G/DL (3.5-5.0); BUN (BLOOD UREA NITROGEN) 19 MG/DL (6-23); CALCIUM, SERUM 9.1 MG/DL (8.5-10.4); CHLORIDE, SERUM 96 MMOL/L (96-112); CO2 (CARBON DIOXIDE) 31 MMOL/L (24-34); CREATININE 1.17 MG/DL (0.70-1.30); GFR AFRICAN AMERICAN 72 ML/MIN (>=60); GFR NON AFRICAN AMERICAN 62 ML/MIN (>=60); POTASSIUM, SERUM 3.6 MMOL/L (3.5-5.3); SODIUM, SERUM 136 MMOL/L (135-148)
[2017-03-01 05:24] LABS: GLUCOSE, SERUM 120 MG/DL (60-99)
[2017-03-01 05:33] LABS: MANUAL DIFF NO %
[2017-03-01 14:13] LABS: BASOPHILS 0.3 %; BASOPHILS ABSOLUTE 0.03 10/3/uL (0.0-0.16); EOSINOPHILS 2.1 %; EOSINOPHILS ABSOLUTE 0.23 10/3/uL (0.0-0.53); HEMATOCRIT 27.3 % (40.0-51.0); HEMOGLOBIN 8.5 g/dL (13.6-17.8); IMMATURE GRANULOCYTES 0.2 %; IMMATURE GRANULOCYTES ABSOLUTE 0.02 10/3/uL (0.0-0.11); LYMPHOCYTES 5.5 %; MEAN CORPUS HGB CONC 31.1 g/dL (32.0-36.0); MEAN CORPUSCULAR HEMOGLOB 26.3 pg (26.0-34.0); MEAN CORPUSCULAR VOLUME 84.5 fL (80-100); MEAN PLATELET VOLUME 7.9 fL (9.2-13.0); MONOCYTES ABSOLUTE 0.33 10/3/uL (0.21-1.20); NEUTROPHILS 88.9 %; NEUTROPHILS ABSOLUTE 9.63 10/3/uL (2.02-8.40); PLATELET COUNT 252 10/3/uL (150-400); RBC DISTRIBUTION WIDTH 15.6 % (12.0-16.0); RED CELL COUNT 3.23 10/6/uL (4.7-6.1); WHITE BLOOD CELLS 10.8 10/3/uL (4.5-10.5)
[2017-03-01 14:16] LABS: MANUAL DIFF NO %
[2017-03-01 14:25] LABS: BUN (BLOOD UREA NITROGEN) 17 MG/DL (6-23); CALCIUM, SERUM 8.8 MG/DL (8.5-10.4); CHLORIDE, SERUM 98 MMOL/L (96-112); CO2 (CARBON DIOXIDE) 31 MMOL/L (24-34); GFR AFRICAN AMERICAN 87 ML/MIN (>=60); GFR NON AFRICAN AMERICAN 75 ML/MIN (>=60); GLUCOSE, SERUM 110 MG/DL (60-99); SODIUM, SERUM 136 MMOL/L (135-148)
[2017-03-01 14:26] LABS: POTASSIUM, SERUM 4.4 MMOL/L (3.5-5.3)
[2017-03-01 16:34] LABS: BASOPHILS 0.1 %; BASOPHILS ABSOLUTE 0.01 10/3/uL (0.0-0.16); EOSINOPHILS 0.3 %; EOSINOPHILS ABSOLUTE 0.04 10/3/uL (0.0-0.53); HEMATOCRIT 26.3 % (40.0-51.0); HEMOGLOBIN 8.4 g/dL (13.6-17.8); IMMATURE GRANULOCYTES 0.2 %; IMMATURE GRANULOCYTES ABSOLUTE 0.02 10/3/uL (0.0-0.11); LYMPHOCYTES 3.2 %; LYMPHOCYTES ABSOLUTE 0.37 10/3/uL (0.67-4.30); MEAN CORPUS HGB CONC 31.9 g/dL (32.0-36.0); MEAN CORPUSCULAR HEMOGLOB 26.6 pg (26.0-34.0); MEAN CORPUSCULAR VOLUME 83.2 fL (80-100); MEAN PLATELET VOLUME 8.2 fL (9.2-13.0); MONOCYTES 1.2 %; MONOCYTES ABSOLUTE 0.14 10/3/uL (0.21-1.20); NEUTROPHILS ABSOLUTE 11.06 10/3/uL (2.02-8.40); PLATELET COUNT 264 10/3/uL (150-400); RBC DISTRIBUTION WIDTH 15.8 % (12.0-16.0); RED CELL COUNT 3.16 10/6/uL (4.7-6.1); WHITE BLOOD CELLS 11.6 10/3/uL (4.5-10.5)
[2017-03-01 16:37] LABS: MANUAL DIFF NO %
[2017-03-01 16:46] LABS: BUN (BLOOD UREA NITROGEN) 17 MG/DL (6-23); CALCIUM, SERUM 9.1 MG/DL (8.5-10.4); CHLORIDE, SERUM 98 MMOL/L (96-112); CO2 (CARBON DIOXIDE) 30 MMOL/L (24-34); GFR AFRICAN AMERICAN 87 ML/MIN (>=60); GFR NON AFRICAN AMERICAN 75 ML/MIN (>=60); POTASSIUM, SERUM 4.6 MMOL/L (3.5-5.3); SODIUM, SERUM 134 MMOL/L (135-148)
[2017-03-01 16:49] LABS: GLUCOSE, SERUM 138 MG/DL (60-99)
[2017-03-02 04:24] LABS: BASOPHILS 0 %; EOSINOPHILS 0.1 %; EOSINOPHILS ABSOLUTE 0.01 10/3/uL (0.0-0.53); HEMATOCRIT 26.4 % (40.0-51.0); HEMOGLOBIN 8.4 g/dL (13.6-17.8); IMMATURE GRANULOCYTES 0.1 %; IMMATURE GRANULOCYTES ABSOLUTE 0.01 10/3/uL (0.0-0.11); LYMPHOCYTES 6.5 %; LYMPHOCYTES ABSOLUTE 0.67 10/3/uL (0.67-4.30); MEAN CORPUS HGB CONC 31.8 g/dL (32.0-36.0); MEAN CORPUSCULAR HEMOGLOB 26.8 pg (26.0-34.0); MEAN CORPUSCULAR VOLUME 84.1 fL (80-100); MEAN PLATELET VOLUME 8.5 fL (9.2-13.0); MONOCYTES ABSOLUTE 0.31 10/3/uL (0.21-1.20); NEUTROPHILS 90.3 %; NEUTROPHILS ABSOLUTE 9.28 10/3/uL (2.02-8.40); PLATELET COUNT 271 10/3/uL (150-400); RBC DISTRIBUTION WIDTH 15.6 % (12.0-16.0); RED CELL COUNT 3.14 10/6/uL (4.7-6.1); WHITE BLOOD CELLS 10.3 10/3/uL (4.5-10.5)
[2017-03-02 04:25] LABS: MANUAL DIFF NO %
[2017-03-02 04:41] LABS: ALBUMIN 1.8 G/DL (3.5-5.0); BUN (BLOOD UREA NITROGEN) 20 MG/DL (6-23); CALCIUM, SERUM 9.3 MG/DL (8.5-10.4); CHLORIDE, SERUM 96 MMOL/L (96-112); CO2 (CARBON DIOXIDE) 30 MMOL/L (24-34); CREATININE 1.07 MG/DL (0.70-1.30); GFR AFRICAN AMERICAN 80 ML/MIN (>=60); GFR NON AFRICAN AMERICAN 69 ML/MIN (>=60); PHOSPHORUS, SERUM 3.4 MG/DL (2.5-4.5); POTASSIUM, SERUM 4.8 MMOL/L (3.5-5.3); SODIUM, SERUM 135 MMOL/L (135-148)
[2017-03-02 04:44] LABS: GLUCOSE, SERUM 176 MG/DL (60-99)
[2017-03-03 05:35] LABS: BASOPHILS 0.2 %; BASOPHILS ABSOLUTE 0.02 10/3/uL (0.0-0.16); EOSINOPHILS ABSOLUTE 0.29 10/3/uL (0.0-0.53); HEMATOCRIT 28.6 % (40.0-51.0); HEMOGLOBIN 8.7 g/dL (13.6-17.8); IMMATURE GRANULOCYTES 0.2 %; IMMATURE GRANULOCYTES ABSOLUTE 0.02 10/3/uL (0.0-0.11); LYMPHOCYTES 10.4 %; LYMPHOCYTES ABSOLUTE 0.99 10/3/uL (0.67-4.30); MEAN CORPUS HGB CONC 30.4 g/dL (32.0-36.0); MEAN CORPUSCULAR HEMOGLOB 25.9 pg (26.0-34.0); MEAN CORPUSCULAR VOLUME 85.1 fL (80-100); MEAN PLATELET VOLUME 8.6 fL (9.2-13.0); MONOCYTES 5.5 %; MONOCYTES ABSOLUTE 0.52 10/3/uL (0.21-1.20); NEUTROPHILS 80.7 %; PLATELET COUNT 306 10/3/uL (150-400); RBC DISTRIBUTION WIDTH 15.8 % (12.0-16.0); RED CELL COUNT 3.36 10/6/uL (4.7-6.1); WHITE BLOOD CELLS 9.5 10/3/uL (4.5-10.5)
[2017-03-03 05:41] LABS: MANUAL DIFF NO %
[2017-03-03 05:43] LABS: ALBUMIN 1.8 G/DL (3.5-5.0); CALCIUM, SERUM 9.9 MG/DL (8.5-10.4); CHLORIDE, SERUM 97 MMOL/L (96-112); CO2 (CARBON DIOXIDE) 33 MMOL/L (24-34); GFR AFRICAN AMERICAN 70 ML/MIN (>=60); GFR NON AFRICAN AMERICAN 60 ML/MIN (>=60); POTASSIUM, SERUM 4.2 MMOL/L (3.5-5.3); SODIUM, SERUM 139 MMOL/L (135-148)
[2017-03-03 05:48] LABS: BUN (BLOOD UREA NITROGEN) 27 MG/DL (6-23); GLUCOSE, SERUM 87 MG/DL (60-99)
[2017-03-04 05:12] LABS: BUN (BLOOD UREA NITROGEN) 25 MG/DL (6-23); CALCIUM, SERUM 9.6 MG/DL (8.5-10.4); CHLORIDE, SERUM 96 MMOL/L (96-112); CO2 (CARBON DIOXIDE) 32 MMOL/L (24-34); CREATININE 1.25 MG/DL (0.70-1.30); GFR AFRICAN AMERICAN 66 ML/MIN (>=60); GFR NON AFRICAN AMERICAN 57 ML/MIN (>=60); GLUCOSE, SERUM 83 MG/DL (60-99); POTASSIUM, SERUM 3.9 MMOL/L (3.5-5.3); SODIUM, SERUM 137 MMOL/L (135-148)
[2017-03-05 05:31] LABS: BUN (BLOOD UREA NITROGEN) 28 MG/DL (6-23); CALCIUM, SERUM 9.4 MG/DL (8.5-10.4); CHLORIDE, SERUM 96 MMOL/L (96-112); CO2 (CARBON DIOXIDE) 30 MMOL/L (24-34); CREATININE 1.37 MG/DL (0.70-1.30); GFR AFRICAN AMERICAN 59 ML/MIN (>=60); GFR NON AFRICAN AMERICAN 51 ML/MIN (>=60); POTASSIUM, SERUM 4.4 MMOL/L (3.5-5.3); SODIUM, SERUM 136 MMOL/L (135-148)
[2017-03-05 05:32] LABS: GLUCOSE, SERUM 103 MG/DL (60-99)
[2017-03-06 05:18] LABS: CALCIUM, SERUM 9.9 MG/DL (8.5-10.4); CHLORIDE, SERUM 99 MMOL/L (96-112); CO2 (CARBON DIOXIDE) 31 MMOL/L (24-34); CREATININE 1.23 MG/DL (0.70-1.30); GFR AFRICAN AMERICAN 68 ML/MIN (>=60); GFR NON AFRICAN AMERICAN 58 ML/MIN (>=60); GLUCOSE, SERUM 92 MG/DL (60-99); POTASSIUM, SERUM 4.1 MMOL/L (3.5-5.3); SODIUM, SERUM 138 MMOL/L (135-148)
[2017-03-06 05:21] LABS: BUN (BLOOD UREA NITROGEN) 23 MG/DL (6-23)
[2017-03-06 09:50] LABS: HEMATOCRIT 29.4 % (40.0-51.0); HEMOGLOBIN 8.9 g/dL (13.6-17.8); PLATELET COUNT 293 10/3/uL (150-400)
[2017-03-06 09:57] LABS: INTERNATIONAL NORMAL RATI 1.2 UNITS (-); PARTIAL THROMBO TIME 28.4 SEC (22.5-37.2); PROTIME (NOT ORD) 15.2 SEC (12.0-14.5)
[2017-03-06 18:30] LABS: BD FL LYMPH (NOT ORD) 5 %; BF BASO (NOT OF) 0 %; BF LARGE MONONUCLEAR 7 %; BF TOTAL CELL CT (NOT ORD 312 /MM3; BODY FLUID EOS (NOT ORD) 0 %; BODY FLUID RBC (NOT ORD) 51000 /MM3; BODY FLUID SEG (NOT ORD) 88 %
[2017-03-06 18:31] LABS: BD FL SOURCE (NOT ORD) BAL--RUL
[2017-03-07 04:37] LABS: BASOPHILS 0.3 %; BASOPHILS ABSOLUTE 0.03 10/3/uL (0.0-0.16); EOSINOPHILS 4.9 %; EOSINOPHILS ABSOLUTE 0.45 10/3/uL (0.0-0.53); HEMATOCRIT 30.1 % (40.0-51.0); HEMOGLOBIN 9.3 g/dL (13.6-17.8); IMMATURE GRANULOCYTES 0.1 %; IMMATURE GRANULOCYTES ABSOLUTE 0.01 10/3/uL (0.0-0.11); LYMPHOCYTES 16.6 %; LYMPHOCYTES ABSOLUTE 1.51 10/3/uL (0.67-4.30); MANUAL DIFF NO %; MEAN CORPUS HGB CONC 30.9 g/dL (32.0-36.0); MEAN CORPUSCULAR HEMOGLOB 26.3 pg (26.0-34.0); MEAN PLATELET VOLUME 8.4 fL (9.2-13.0); MONOCYTES 5.1 %; MONOCYTES ABSOLUTE 0.46 10/3/uL (0.21-1.20); NEUTROPHILS ABSOLUTE 6.64 10/3/uL (2.02-8.40); PLATELET COUNT 310 10/3/uL (150-400); RBC DISTRIBUTION WIDTH 15.8 % (12.0-16.0); RED CELL COUNT 3.54 10/6/uL (4.7-6.1); WHITE BLOOD CELLS 9.1 10/3/uL (4.5-10.5)
[2017-03-07 04:50] LABS: BUN (BLOOD UREA NITROGEN) 22 MG/DL (6-23); CALCIUM, SERUM 10.3 MG/DL (8.5-10.4); CHLORIDE, SERUM 98 MMOL/L (96-112); CO2 (CARBON DIOXIDE) 33 MMOL/L (24-34); CREATININE 1.37 MG/DL (0.70-1.30); GFR AFRICAN AMERICAN 59 ML/MIN (>=60); GFR NON AFRICAN AMERICAN 51 ML/MIN (>=60); GLUCOSE, SERUM 92 MG/DL (60-99); POTASSIUM, SERUM 4.3 MMOL/L (3.5-5.3); SODIUM, SERUM 137 MMOL/L (135-148)
[2017-03-07] MEDS ORDERED: PCET PO (16:36)
[2017-03-07] MEDS ORDERED: CORDARONE PO (16:36)
[2017-03-07] MEDS ORDERED: ZYVOXPO PO (16:37)
== END 2017-03-07 18:59 | disposition home health service (06) | DRG 163 ==
LOC: ER 16:58 → CCU 18:31 → 5NO 03-04 08:01
PROVIDERS: Family Medicine; Hospitalist; Internal Medicine; Internal Medicine Critical Care Medicine; Internal Medicine Pulmonary Disease; Thoracic Surgery (Cardiothoracic Vascular Surgery)
PROC: 0W9900Z Drainage of Right Pleural Cavity with Drainage Device, Open Approach (ICD-10-PCS; principal; 2017-02-24)
PROC: 0B9F8ZX Drainage of Right Lower Lung Lobe, Via Natural or Artificial Opening Endoscopic, Diagnostic (ICD-10-PCS; 2017-03-01)
PROC: 0BDN4ZZ Extraction of Right Pleura, Percutaneous Endoscopic Approach (ICD-10-PCS; 2017-03-01 10:00)
PROC: 02HV33Z Insertion of Infusion Device into Superior Vena Cava, Percutaneous Approach (ICD-10-PCS; 2017-03-02)
PROC: 4A02X4A Measurement of Cardiac Electrical Activity, Guidance, External Approach (ICD-10-PCS; 2017-03-02)
DX: J93.0 Spontaneous tension pneumothorax (principal); J18.9 Pneumonia, unspecified organism; J96.01 Acute respiratory failure with hypoxia; J86.9 Pyothorax without fistula; J90 Pleural effusion, not elsewhere classified; C34.31 Malignant neoplasm of lower lobe, right bronchus or lung; C77.1 Secondary and unspecified malignant neoplasm of intrathoracic lymph nodes; D64.9 Anemia, unspecified; J98.11 Atelectasis; I71.2 Thoracic aortic aneurysm, without rupture; I48.91 Unspecified atrial fibrillation; J44.9 Chronic obstructive pulmonary disease, unspecified; I25.10 Atherosclerotic heart disease of native coronary artery without angina pectoris; I10 Essential (primary) hypertension; I73.9 Peripheral vascular disease, unspecified; K44.9 Diaphragmatic hernia without obstruction or gangrene; E78.2 Mixed hyperlipidemia; N40.0 Benign prostatic hyperplasia without lower urinary tract symptoms; R26.9 Unspecified abnormalities of gait and mobility; Z88.1 Allergy status to other antibiotic agents; Z95.1 Presence of aortocoronary bypass graft; Z86.14 Personal history of Methicillin resistant Staphylococcus aureus infection; Z82.49 Family history of ischemic heart disease and other diseases of the circulatory system; Z87.891 Personal history of nicotine dependence; Z91.041 Radiographic dye allergy status; Z79.01 Long term (current) use of anticoagulants; Z95.820 Peripheral vascular angioplasty status with implants and grafts; E83.42 Hypomagnesemia
CPT/HCPCS: 36415; 36569; 36600; 71010; 71250; 80048; 80069; 80202; 82805; 82962; 83605; 83735; 84100; 84145; 84484; 85014; 85018; 85025; 85049; 85347; 85384; 85576; 85576-59; 85610; 85730; 86850; 86900; 86901; 86920; 87015; 87040; 87070; 87075; 87077; 87102; 87116; 87186; 87205; 87641; 88112; 88172; 88173; 88305; 88331; 88360; 89051; 93005; 94640; 94668; 96374; 99291; A9270-GY; C1725; C1751; C1757; C1769; J0282; J0456; J0692; J2250; J2270; J2370; J2405; J2543; J2710; J2795; J3010; J3370; P9045

== ENCOUNTER 2017-04-10 22:31 | Emergency (ER) | payer MEDICARE ==
[2017-04-10 15:15] LABS: BASOPHILS 0.2 %; BASOPHILS ABSOLUTE 0.03 10/3/uL (0.0-0.16); EOSINOPHILS 0.7 %; HEMATOCRIT 34.6 % (40.0-51.0); HEMOGLOBIN 10.8 g/dL (13.6-17.8); IMMATURE GRANULOCYTES 0.4 %; IMMATURE GRANULOCYTES ABSOLUTE 0.06 10/3/uL (0.0-0.11); LYMPHOCYTES 10.1 %; LYMPHOCYTES ABSOLUTE 1.39 10/3/uL (0.67-4.30); MEAN CORPUS HGB CONC 31.2 g/dL (32.0-36.0); MEAN CORPUSCULAR HEMOGLOB 26.5 pg (26.0-34.0); MEAN PLATELET VOLUME 8.9 fL (9.2-13.0); MONOCYTES ABSOLUTE 0.69 10/3/uL (0.21-1.20); NEUTROPHILS 83.6 %; NEUTROPHILS ABSOLUTE 11.48 10/3/uL (2.02-8.40); PLATELET COUNT 224 10/3/uL (150-400); RED CELL COUNT 4.07 10/6/uL (4.7-6.1); WHITE BLOOD CELLS 13.8 10/3/uL (4.5-10.5)
[2017-04-10 15:16] LABS: MANUAL DIFF NO %
[2017-04-10 15:28] LABS: INTERNATIONAL NORMAL RATI 1.2 UNITS (-); PROTIME (NOT ORD) 15.1 SEC (12.0-14.5)
[2017-04-10 15:29] LABS: BUN (BLOOD UREA NITROGEN) 28 MG/DL (6-23); CHLORIDE, SERUM 97 MMOL/L (96-112); CO2 (CARBON DIOXIDE) 38 MMOL/L (24-34); GFR AFRICAN AMERICAN 43 ML/MIN (>=60); GFR NON AFRICAN AMERICAN 37 ML/MIN (>=60); GLUCOSE, SERUM 118 MG/DL (60-99); SODIUM, SERUM 137 MMOL/L (135-148)
[2017-04-10 15:32] LABS: POTASSIUM, SERUM 2.9 MMOL/L (3.5-5.3)
[2017-04-10 15:33] LABS: CALCIUM, SERUM 16.4 MG/DL (8.5-10.4); CHEST PAIN PROFILE TAT 0 Hrs 24 Mins; TROPONIN I 0.05 NG/ML (<0.05)
[2017-04-10 15:37] LABS: PARTIAL THROMBO TIME 20.9 SEC (22.5-37.2)
[2017-04-10 20:33] LABS: ASCORBIC ACID (UR NOT ORDER) NEG (NEG); BILIRUBIN, URINE NEGATIVE (NEG); ER URINALYSIS TAT 0 Hrs 20 Mins; KETONE, URINE NEGATIVE (NEG); LEUKOCYTE ESTERASE(NOT OR TRACE (NEG); NITRITE (URINE) NEG (NEG); WBC (NOT ORDERED) (RFLEX) 17 (0-5)
[~2017-04-10 22:31] MED LIST changes: +CORDARONE PO; +PCET PO; +ULTRAM50
== END 2017-04-10 23:27 | disposition home or self-care (01) ==
LOC: ER 22:31
PROVIDERS: Nurse Practitioner
DX: E86.0 Dehydration (principal); E87.6 Hypokalemia; C34.90 Malignant neoplasm of unspecified part of unspecified bronchus or lung
CPT/HCPCS: 71020; 80048; 81001; 83735; 84484; 85025; 85610; 85730; 93005; 99285; A9270-GY